=== PATIENT | male | born 1960 | race Caucasian/White ===

== ENCOUNTER 2018-07-18 14:09 | Emergency (ER) | payer BC ==
--- NOTE | 2018-07-18 15:13 | RAD REPORT ---
EXAM DESCRIPTION: CT - Head Brain Wo Cont - 07/18/2018 3:06 pm CLINICAL HISTORY: HEADACHE Drowsiness COMPARISON: <Comparisons> TECHNIQUE: All CT scans are performed using dose optimization technique as appropriate and may inclu de automated exposure control or mA/KV adjustment according to patient size. FINDINGS: No intracranial hemorrhage, hydrocephalus or extra-axial fluid collection.No areas of brai n edema or evidence of midline shift. The paranasal sinuses and mastoids are clear. The calvarium is intact. IMPRESSION: No acute intracranial abnormality.
--- NOTE | 2018-07-18 15:19 | EDPHYS ---
Physician Documentation [facility] Name: Horacio Sanchez Age: 57 yrs Sex: Male : 1960 Arrival Date: 07/18/2018 Time: 14:15 Bed 14 Private MD: Migue Folrian ED Physician Kevon Cadena HPI: 07/18 15:12 This 57 yrs old Male presents to ER via Ambulatory with complaints of kb Headache. 15:12 The patient complains of pain to the left side of head. The patient describes the kb headache as constant, waxing and waning. Onset: The symptoms/episode began/occurred 1 month(s) ago. Associated signs and symptoms: The patient has no apparent associated signs or symptoms. Severity of symptoms: At its worst the pain was moderate, in the emergency department the pain has improved, mildly. Headache History: Denies prior headaches. The symptoms are alleviated by over the counter pain medication, the symptoms are aggravated by nothing. The patient has not experienced similar symptoms in the past. The patient has not recently seen a physician. Pt reports headache for a month that is dull with intermittent periods of sharpness. Pain is to left side of head. Pt starts a new job tomorrow so he decided to come get it checked out now to see if it was something serious. Historical: - Allergies: 14:20 No Known Allergies; aj1 - Home Meds: 14:20 aspirin 81 mg Oral chew 1 tab once daily [Active]; aj1 - PMHx: 14:20 None; aj1 - PSHx: 14:20 Appendectomy; aj1 - Immunization history:: Flu vaccine is not up to date. - Social history:: Smoking status: Patient/guardian denies using tobacco. - Ebola Screening: : Patient denies travel to an Ebola-affected area in the 21 days before illness onset. ROS: 15:11 Constitutional: Negative for fever, chills, and weight loss, Eyes: Negative for injury, kb pain, redness, and discharge, ENT: Negative for injury, pain, and discharge, Neck: Negative for injury, pain, and swelling, Cardiovascular: Negative for chest pain, palpitations, and edema, Respiratory: Negative for shortness of breath, cough, wheezing, and pleuritic chest pain, Abdomen/GI: Negative for abdominal pain, nausea, vomiting, diarrhea, and constipation, MS/Extremity: Negative for injury and deformity, Skin: Negative for injury, rash, and discoloration. 15:11 Neuro: Positive for headache. Exam: 15:11 Constitutional: This is a well developed, well nourished patient who is awake, alert, kb and in no acute distress. Head/Face: Normocephalic, atraumatic. Eyes: Pupils equal round and reactive to light, extra-ocular motions intact. Lids and lashes normal. Conjunctiva and sclera are non-icteric and not injected. Cornea within normal limits. Periorbital areas with no swelling, redness, or edema. ENT: Nares patent. No nasal discharge, no septal abnormalities noted. Tympanic membranes are normal and external auditory canals are clear. Oropharynx with no redness, swelling, or masses, exudates, or evidence of obstruction, uvula midline. Mucous membranes moist. Neck: Trachea midline, no thyromegaly or masses palpated, and no cervical lymphadenopathy. Supple, full range of motion without nuchal rigidity, or vertebral point tenderness. No Meningismus. Chest/axilla: Normal chest wall appearance and motion. Nontender with no deformity. No lesions are appreciated. Cardiovascular: Regular rate and rhythm with a normal S1 and S2. No gallops, murmurs, or rubs. Normal PMI, no JVD. No pulse deficits. Respiratory: Lungs have equal breath sounds bilaterally, clear to auscultation and percussion. No rales, rhonchi or wheezes noted. No increased work of breathing, no retractions or nasal flaring. Abdomen/GI: Soft, non-tender, with normal bowel sounds. No distension or tympany. No guarding or rebound. No evidence of tenderness throughout. Skin: Warm, dry with normal turgor. Normal color with no rashes, no lesions, and no evidence of cellulitis. MS/ Extremity: Pulses equal, no cyanosis. Neurovascular intact. Full, normal range of motion. Neuro: Awake and alert, GCS 15, oriented to person, place, time, and situation. Cranial nerves II-XII grossly intact. Motor strength 5/5 in all extremities. Sensory grossly intact. Cerebellar exam normal. Normal gait. Vital Signs: 14:20 BP 132 / 75; Pulse 82; Resp 18; Temp 97.8(O); Pulse Ox 97% on R/A; Weight 127.01 kg aj1 (R); Height 6 ft. 1 in. (185.42 cm) (R); Pain /10; 14:20 Body Mass Index 36.94 (127.01 kg, 185.42 cm) aj1 NIH Stroke Scale Scores: 15:11 NIHSS Score: 0 kb [place] Coma Score: 15:12 Eye Response: spontaneous(4). Verbal Response: oriented(5). Motor Response: obeys kb commands(6). Total: 15. MDM: 14:34 Patient medically screened. kb 15:12 Data reviewed: vital signs, nurses notes. Data interpreted: Pulse oximetry: on room air kb is 97 %. Interpretation: normal. 15:17 Counseling: I had a detailed discussion with the patient and/or guardian regarding: the kb historical points, exam findings, and any diagnostic results supporting the discharge/admit diagnosis, radiology results, the need for outpatient follow up, a family practitioner, a neurologist, to return to the emergency department if symptoms worsen or persist or if there are any questions or concerns that arise at home. 07/18 14:53 Order name: CT Head Brain wo Cont; Complete Time: 15:16 kb Administered Medications: No medications were administered Disposition: 07/19 08:25 Co-signature as Attending Physician, Kevon Cadena MD I agree with the assessment and malik plan of care. Disposition: 07/18/18 15:18 Discharged to Home. Impression: Headache. - Condition is Stable. - Discharge Instructions: General Headache Without Cause, [id number]. - Medication Reconciliation Form, Thank You Letter, Antibiotic Education, Prescription Opioid Use form. - Follow up: Emergency Department; When: As needed; Reason: Worsening of condition. Follow up: Private Physician; When: 2 - 3 days; Reason: Recheck today's complaints, Continuance of care, Re-evaluation by your physician. NIH Stroke Scale - NIH Stroke Score Date: 07/18/2018 Time: 15:11 Total Score = 0 1a. Level of Consciousness (LOC) - 0(Alert) 1b. Level of Consciousness (LOC) (Year \T\ Age) - 0(Both) 1c. LOC Commands (Open \T\ Closes Eyes/Home Care Companion) - 0(Both) 2. Best Gaze (Lateral Gaze Paresis) - 0(Normal) 3. Visual Field Loss - 0(No visual loss) 4. Facial Palsy - 0(Normal) 5a. Left Arm: Motor (10-second hold) - 0(No drift) 5b. Right Arm: Motor (10-second hold) - 0(No drift) 6a. Left Leg: Motor (5-second hold - always test supine) - 0(No drift) 6b. Right Leg: Motor (5-second hold - always test supine) - 0(No drift) 7. Limb Ataxia (finger/nose \T\ heel/lo - test with eyes open) - 0(Absent) 8. Sensory Loss (pinprick arms/legs/face) - 0(Normal) 9. Best Language: Aphasia (description/naming/reading) - 0(No aphasia) 10. Dysarthria (speech clarity - read or repeat words) - 0(Normal) 11. Extinction and Inattention (visual/tactile/auditory/spatial/personal) - 0(No abnormality) Initials: kb Signatures: Dispatcher [employer] EDMS Cheryle Holder, MILLED LUMBER GRADER-C MILLED LUMBER GRADER-Ckb Ewelina Townsend, RN RN aj1 Kevon Cadena MD MD cha Joaquin, Henry, RN RN hj Corrections: (The following items were deleted from the chart) 07/18 16:06 15:18 07/18/2018 15:18 Discharged to Home. Impression: Headache. Condition is hj Stable. Forms are Medication Reconciliation Form, Thank You Letter, Antibiotic Education, Prescription Opioid Use. Follow up: Emergency Department; When: As needed; Reason: Worsening of condition. Follow up: Private Physician; When: 2 - 3 days; Reason: Recheck today's complaints, Continuance of care, Re-evaluation by your physician. kb
--- NOTE | 2018-07-18 15:19 | ER ---
Nurse's Notes [facility] Name: Horacio Sanchez Age: 57 yrs Sex: Male : 1960 Arrival Date: 07/18/2018 Time: 14:15 Bed 14 Private MD: Migue Florian Diagnosis: Headache Presentation: 07/18 14:18 Presenting complaint: Patient states: "Bernadette had a headache for about a month now. Its aj1 everyday. It dulls with medicine, but it never fully goes away" Patient has not seen his PHCP regarding this complaint. Transition of care: patient was not received from another setting of care. Onset of symptoms was May 2018. Risk Assessment: Do you want to hurt yourself or someone else? Patient reports no desire to harm self or others. Initial Sepsis Screen: Does the patient meet any 2 criteria? No. Patient's initial sepsis screen is negative. Does the patient have a suspected source of infection? No. Patient's initial sepsis screen is negative. Care prior to arrival: None. 14:18 Method Of Arrival: Ambulatory aj1 14:18 Acuity: LILA 4 aj1 Triage Assessment: 14:20 Headache History: Denies prior headaches. General: Appears in no apparent distress. aj1 comfortable, Behavior is calm, cooperative, appropriate for age. Pain: Complains of pain in left side of the back of head Pain currently is 1 out of 10 on a pain scale. Pain began one month ago. Pain: Also complains of "pulsating feeling in eye". Neuro: Level of Consciousness is awake, alert, obeys commands. Cardiovascular: Patient's skin is warm and dry. Respiratory: Airway is patent Respiratory effort is even, unlabored, Respiratory pattern is regular, symmetrical. Historical: - Allergies: 14:20 No Known Allergies; aj1 - Home Meds: 14:20 aspirin 81 mg Oral chew 1 tab once daily [Active]; aj1 - PMHx: 14:20 None; aj1 - PSHx: 14:20 Appendectomy; aj1 - Immunization history:: Flu vaccine is not up to date. - Social history:: Smoking status: Patient/guardian denies using tobacco. - Ebola Screening: : Patient denies travel to an Ebola-affected area in the 21 days before illness onset. Screenin:31 Abuse screen: Denies threats or abuse. Denies injuries from another. Nutritional hj screening: No deficits noted. Tuberculosis screening: No symptoms or risk factors identified. Fall Risk None identified. Assessment: 14:32 General: Appears in no apparent distress. uncomfortable, Behavior is calm, cooperative, hj appropriate for age. Pain: Complains of pain in scalp and left side of the back of head. Neuro: Level of Consciousness is awake, alert, obeys commands, Oriented to person, place, time, situation, Appropriate for age. Cardiovascular: Capillary refill < 3 seconds Patient's skin is warm and dry. Respiratory: Airway is patent Respiratory effort is even, unlabored, Respiratory pattern is regular, symmetrical. GI: No signs and/or symptoms were reported involving the gastrointestinal system. : No signs and/or symptoms were reported regarding the genitourinary system. EENT: No signs and/or symptoms were reported regarding the EENT system. Derm: No signs and/or symptoms reported regarding the dermatologic system. Musculoskeletal: No signs and/or symptoms reported regarding the musculoskeletal system. Vital Signs: 14:20 BP 132 / 75; Pulse 82; Resp 18; Temp 97.8(O); Pulse Ox 97% on R/A; Weight 127.01 kg aj1 (R); Height 6 ft. 1 in. (185.42 cm) (R); Pain 1/10; 14:20 Body Mass Index 36.94 (127.01 kg, 185.42 cm) aj1 [place] Coma Score: 15:12 Eye Response: spontaneous(4). Verbal Response: oriented(5). Motor Response: obeys kb commands(6). Total: 15. NIH Stroke Scale Scores: 15:11 NIHSS Score: 0 kb ED Course: 14:15 Patient arrived in ED. mr 14:15 Migue Florian MD is Private Physician. mr 14:19 Triage completed. aj1 14:20 Arm band placed on Patient placed in waiting room, Patient notified of wait time. aj1 14:30 Lai Weston, VIBHA is Primary Nurse. hj 14:31 Patient has correct armband on for positive identification. Bed in low position. Call hj light in reach. Side rails up X 1. Adult w/ patient. 14:34 Cheryle Holder FNP-C [facility]. kb 14:34 Kevon Cadena MD is Attending Physician. kb 15:[address] via wheelchair. brad 15:05 CT completed. Patient tolerated procedure well. Patient moved back from CT. brad 15:06 CT Head Brain wo Cont In Process Unspecified. EDMS Administered Medications: No medications were administered Outcome: 15:18 Discharge ordered by . lana 16:06 Patient left the ED. rafita NIH Stroke Scale - NIH Stroke Score Date: 07/18/2018 Time: 15:11 Total Score = 0 1a. Level of Consciousness (LOC) - 0(Alert) 1b. Level of Consciousness (LOC) (Year \\T\\ Age) - 0(Both) 1c. LOC Commands (Open \\T\\ Closes Eyes/Pricing Analyst) - 0(Both) 2. Best Gaze (Lateral Gaze Paresis) - 0(Normal) 3. Visual Field Loss - 0(No visual loss) 4. Facial Palsy - 0(Normal) 5a. Left Arm: Motor (10-second hold) - 0(No drift) 5b. Right Arm: Motor (10-second hold) - 0(No drift) 6a. Left Leg: Motor (5-second hold - always test supine) - 0(No drift) 6b. Right Leg: Motor (5-second hold - always test supine) - 0(No drift) 7. Limb Ataxia (finger/nose \\T\\ heel/lo - test with eyes open) - 0(Absent) 8. Sensory Loss (pinprick arms/legs/face) - 0(Normal) 9. Best Language: Aphasia (description/naming/reading) - 0(No aphasia) 10. Dysarthria (speech clarity - read or repeat words) - 0(Normal) 11. Extinction and Inattention (visual/tactile/auditory/spatial/personal) - 0(No abnormality) Initials: lana Signatures: Dispatcher [employer] EDMS Cheryle Holder, CANDICEC CASE INVESTIGATOR-CkEwelina Deras, RN RN Natalya Day Henry, RN RN Jeffery Levy
[2018-07-18 16:53] VITALS: BP 132/75; TEMP 97.8; O2SAT 97
== END 2018-07-18 16:06 | disposition home or self-care (01) ==
LOC: ER 14:09
DX: R51 Headache (principal); Z79.82 Long term (current) use of aspirin
CPT/HCPCS: 70450; 99284

== ENCOUNTER 2019-11-02 14:04 | Observation (INO) | payer BC ==
[2019-11-02] MEDS ORDERED: NA CHLORIDE 0.9% 1,000 ML ONE (15:28)
[2019-11-02] MEDS ORDERED: MORPHINE 4 MG/ML SYR ONE ×2 (15:28→18:19)
[2019-11-02] MEDS ORDERED: ONDANSETRON 4 MG/2 ML VIAL ONE (15:28)
[2019-11-02 15:53] LABS: Absolute Lymphocytes (CBC) 0.9 K/uL (0.7-4.9); Basophils % 0.8 % (0-1.3); Hematocrit 35.2 % (39.6-49.0); RBC Red Blood Cell Count 3.84 M/uL (4.33-5.43)
[2019-11-02 15:54] LABS: Protime INR 1.19
[2019-11-02 16:09] LABS: ALT/SGPT 47 U/L (12-78); AST/SGOT 21 U/L (15-37); Albumin 3.3 g/dL (3.4-5.0); Alkaline Phosphatase 98 U/L (45-117); BUN Blood Urea Nitrogen 10 mg/dL (7-18); Bicarbonate 26 mmol/L (21-32); Bilirubin Direct 0.3 mg/dL (0-0.2); Glucose Level 115 mg/dL (74-106); Magnesium 2.4 mg/dL (1.8-2.4); Potassium 3.2 mmol/L (3.5-5.1); Protein, Total 7.1 g/dL (6.4-8.2); Sodium Level 139 mmol/L (136-145)
--- NOTE | 2019-11-02 16:55 | RAD REPORT ---
EXAM DESCRIPTION: Jaelyn Single View11/02/2019 4:16 pm CLINICAL HISTORY: cough COMPARISON: 2010 FINDINGS: The lungs appear clear of acute infiltrate. The heart is normal size IMPRESSION: No acute abnormalities displayed
[2019-11-02] MEDS ORDERED: VANCOMYCIN/NS 1 gm 1 GM/250 ML BAG IVPB ONE ×2 (17:00→22:00)
--- NOTE | 2019-11-02 17:50 | RAD REPORT ---
EXAM DESCRIPTION: CT - Pelvis W/Cont - 11/02/2019 5:33 pm CLINICAL HISTORY: Pelvic pain/perineal infection COMPARISON: None. TECHNIQUE: Computed axial tomography of the pelvis was obtained. 100 cc Isovue-300 Mr. intravenously . Oral contrast was not requested which limits evaluation of bowel All CT scans are performed using dose optimization technique as appropriate and may include automated exposure control or mA/KV adjustment according to patient size. FINDINGS: Diverticula stem from the colon without evidence of diverticulitis. Bowel caliber and wall thickness is normal. The prostate gland is mildly to moderately enlarged. Spondylolysis L5 5 x 3 centimeter fluid collection lies to the left of the anus. IMPRESSION: A 5 x 3 centimeter perianal abscess
--- NOTE | 2019-11-02 18:10 | ER ---
Nurse's Notes [facility] Name: Horacio Sanchez Age: 59 yrs Sex: Male : 1960 Arrival Date: 11/02/2019 Time: 14:06 Bed 19 Private MD: Diagnosis: Cutaneous abscess of buttock;Cellulitis of buttock Presentation: 11/01 14:25 Chief complaint: Patient states: seen by an Urgent Care in [place] and given Clindamycin on dm5 Thursday. Pt states that the urgent care told him they couldn't drain the abscess and that he needed to see a general surgeon. Pt has not done so at this time. Pt states the abscess is getting worse. Pt lying on right side at this time. Coronavirus screen: The patient has NOT traveled to a country currently being monitored by the [facility] within the last 14 days. Proceed with normal triage procedures. The patient has NOT had contact with any known and/or suspected case of coronavirus. Proceed with normal triage procedures. Ebola Screen: Patient negative for fever greater than or equal to 101.5 degrees Fahrenheit, and additional compatible Ebola Virus Disease symptoms Patient denies exposure to infectious person. Patient denies travel to an Ebola-affected area in the 21 days before illness onset. No symptoms or risks identified at this time. Initial Sepsis Screen: Does the patient meet any 2 criteria? No. Patient's initial sepsis screen is negative. Does the patient have a suspected source of infection? Yes: Skin breakdown/wound. Risk Assessment: Do you want to hurt yourself or someone else? Patient reports no desire to harm self or others. 14:25 Method Of Arrival: Ambulatory dm5 14:25 Acuity: LILA 3 dm5 19:15 Onset of symptoms is unknown. Triage Assessment: 15:00 General: Appears in no apparent distress. uncomfortable, Behavior is calm, appropriate vc for age, agitated. Pain: Complains of pain in buttocks. EENT: No signs and/or symptoms were reported regarding the EENT system. Neuro: Level of Consciousness is awake, alert, obeys commands, Oriented to person, place, time, situation, none. Cardiovascular: Patient's skin is warm and dry. Respiratory: Airway is patent Respiratory effort is even, unlabored, Respiratory pattern is regular, symmetrical. GI: No signs and/or symptoms were reported involving the gastrointestinal system. : No signs and/or symptoms were reported regarding the genitourinary system. Derm: Wound noted right buttock. Musculoskeletal: Circulation, motion, and sensation intact. Range of motion: intact in all extremities. Historical: - Allergies: 19:52 No Known Allergies; wh - PMHx: 19:52 High Cholesterol; wh - PSHx: 19:52 Appendectomy; wh - Social history:: Smoking status: . Screenin:00 Abuse screen: Denies threats or abuse. Nutritional screening: No deficits noted. vc Tuberculosis screening: No symptoms or risk factors identified. Fall Risk None identified. Assessment: 15:00 Reassessment: See triage assessment. vc Vital Signs: 14:17 BP 117 / 55; Pulse 96; Resp 18; Temp 98.6; Pulse Ox 93% ; Weight 131.54 kg; Height 6 jb1 ft. 1 in. (185.42 cm); Pain 10/10; 16:00 BP 112 / 60; Pulse 92; Pulse Ox 95% on R/A; vc 18:00 BP 90 / 69; Pulse 87; Resp 18; Pulse Ox 95% on R/A; vc 19:30 BP 107 / 49; Pulse 83; Resp 18; Pulse Ox 96% on R/A; wh 14:17 Body Mass Index 38.26 (131.54 kg, 185.42 cm) jb1 ED Course: 14:06 Patient arrived in ED. fj1 14:30 Triage completed. dm5 14:33 Lebron Munoz PA is PHCP. jr8 14:33 Gab Luo MD is Attending Physician. jr8 14:53 Briseida Laurent, VIBHA is Primary Nurse. vc 15:22 EKG done, by field service poultry technician. reviewed by Lebron BARRIOS. at1 16:16 XRAY Chest (1 view) In Process Unspecified. EDMS 17:33 CT Pelvis w cont In Process Unspecified. EDMS 18:09 Horacio Johnson MD is Hospitalizing Provider. jr8 19:15 Arm band placed on right wrist. wh 19:15 Patient has correct armband on for positive identification. Placed in gown. Bed in low wh position. Call light in reach. Side rails up X 1. Pulse ox on. NIBP on. 19:49 No provider procedures requiring assistance completed. Patient admitted, IV remains in place. Administered Medications: 15:40 Drug: Zofran (Ondansetron) 4 mg Route: IVP; Site: right forearm; vc 19:54 Follow up: Response: No adverse reaction; Nausea is decreased 15:42 Drug: morphine 4 mg Route: IVP; Site: right forearm; vc 19:55 Follow up: Response: No adverse reaction; Pain is decreased; RASS: Alert and Calm (0) 17:15 Drug: Cefepime 1 grams Route: IVPB; Rate: 200 ml/hr; Infused Over: 30 mins; Site: right vc forearm; 19:55 Follow up: Response: No adverse reaction; IV Status: Completed infusion 17:15 Drug: NS 0.9% 1000 ml Route: IV; Rate: 1000 ml; Site: right forearm; vc 19:54 Follow up: Response: No adverse reaction; IV Status: Completed infusion 18:14 Drug: morphine 4 mg Route: IVP; Site: right forearm; vc 19:53 Follow up: Response: No adverse reaction; Pain is decreased; RASS: Alert and Calm (0) 18:15 Drug: vancoMYCIN 1 grams Route: IVPB; Infused Over: 1.5 hrs; Site: right forearm; vc 19:55 Follow up: Response: No adverse reaction; IV Status: Completed infusion 18:24 Drug: Tussionex Pennkinetic ER 5 ml Route: PO; vc 19:53 Follow up: Response: No adverse reaction; Marked relief of symptoms 18:25 Drug: Potassium Chloride 40 mEq Route: PO; vc 19:54 Follow up: Response: No adverse reaction Outcome: 18:10 Decision to Hospitalize by Provider. jr8 19:49 Admitted to [facility] accompanied by tech, via wheelchair, room 207, with chart, Report called to Moise Infante RN 19:49 Condition: stable 19:49 Instructed on the need for admit. 20:19 Patient left the ED. Signatures: Dispatcher [employer] Evert Nolen jb1 Katelyn Benavides, RN RN dm5 Lebron Munoz PA PA jr8 Talia Elliott, records management specialist EKG Tat1 Melissa Finley Briseida Laurent RN RN Aric Coleman fj1
--- NOTE | 2019-11-02 18:10 | EDPHYS ---
Physician Documentation [facility] Name: Horacio Sanchez Age: 59 yrs Sex: Male : 1960 Arrival Date: 11/02/2019 Time: 14:06 Bed 19 Private MD: ED Physician Gab uLo HPI: 11/01 17:47 This 59 yrs old Male presents to ER via Ambulatory with complaints of jr8 Cellulitis left buttock. 17:47 The patient presents with cellulitis of the left buttock. jr8 17:55 Description: The affected area is moderate sized, erythematous, swollen, warm. Onset: jr8 The symptoms/episode began/occurred gradually, 2 day(s) ago. Possible cause(s): unknown. Associated signs and symptoms: The patient has no apparent associated signs or symptoms. Modifying factors: the symptoms are alleviated by nothing, the symptoms are aggravated by walking, pressure, sitting, squeezing the lesion and expressing the contents, touching. Severity of symptoms: At their worst the symptoms were moderate, in the emergency department the symptoms are unchanged. The patient has not experienced similar symptoms in the past. The patient has been recently seen by a physician:. Patient stated that he started to feel sore the other day in his buttock region. Had gone to Urgent care and was put on Abx for cellulitis. Was scheduled to see general surgery for concern of abscess formation as well but came to ED today for significantly worse pain and enlargement of infected region . Historical: - Allergies: 19:52 No Known Allergies; wh - PMHx: 19:52 High Cholesterol; wh - PSHx: 19:52 Appendectomy; wh - Social history:: Smoking status: . ROS: 17:55 Eyes: Negative for injury, pain, redness, and discharge, ENT: Negative for injury, jr8 pain, and discharge, Neck: Negative for injury, pain, and swelling, Cardiovascular: Negative for chest pain, palpitations, and edema, Respiratory: Negative for shortness of breath, cough, wheezing, and pleuritic chest pain, Abdomen/GI: Negative for abdominal pain, nausea, vomiting, diarrhea, and constipation, Back: Negative for injury and pain, MS/Extremity: Negative for injury and deformity, Neuro: Negative for headache, weakness, numbness, tingling, and seizure. 17:55 Skin: Positive for abscess, cellulitis, of the left buttock. Exam: 17:55 Eyes: Pupils equal round and reactive to light, extra-ocular motions intact. Lids and jr8 lashes normal. Conjunctiva and sclera are non-icteric and not injected. Cornea within normal limits. Periorbital areas with no swelling, redness, or edema. ENT: Nares patent. No nasal discharge, no septal abnormalities noted. Tympanic membranes are normal and external auditory canals are clear. Oropharynx with no redness, swelling, or masses, exudates, or evidence of obstruction, uvula midline. Mucous membranes moist. Neck: Trachea midline, no thyromegaly or masses palpated, and no cervical lymphadenopathy. Supple, full range of motion without nuchal rigidity, or vertebral point tenderness. No Meningismus. Cardiovascular: Regular rate and rhythm with a normal S1 and S2. No gallops, murmurs, or rubs. Normal PMI, no JVD. No pulse deficits. Respiratory: Lungs have equal breath sounds bilaterally, clear to auscultation and percussion. No rales, rhonchi or wheezes noted. No increased work of breathing, no retractions or nasal flaring. Abdomen/GI: Soft, non-tender, with normal bowel sounds. No distension or tympany. No guarding or rebound. No evidence of tenderness throughout. Back: No spinal tenderness. No costovertebral tenderness. Full range of motion. MS/ Extremity: Pulses equal, no cyanosis. Neurovascular intact. Full, normal range of motion. Neuro: Awake and alert, GCS 15, oriented to person, place, time, and situation. Cranial nerves II-XII grossly intact. Motor strength 5/5 in all extremities. Sensory grossly intact. Cerebellar exam normal. Normal gait. 17:55 Skin: Patient has approximately 4 cm area of fluctuance abutting near anal orifice on left side. Surrounding cellulitis noted. Moderate pain to palpation . Vital Signs: 14:17 BP 117 / 55; Pulse 96; Resp 18; Temp 98.6; Pulse Ox 93% ; Weight 131.54 kg; Height 6 jb1 ft. 1 in. (185.42 cm); Pain 10/10; 16:00 BP 112 / 60; Pulse 92; Pulse Ox 95% on R/A; vc 18:00 BP 90 / 69; Pulse 87; Resp 18; Pulse Ox 95% on R/A; vc 19:30 BP 107 / 49; Pulse 83; Resp 18; Pulse Ox 96% on R/A; wh 14:17 Body Mass Index 38.26 (131.54 kg, 185.42 cm) jb1 MDM: 14:33 Patient medically screened. jr8 17:55 Data reviewed: vital signs, nurses notes, lab test result(s), radiologic studies, CT jr8 scan. Data interpreted: Pulse oximetry: on room air is 94 %. Interpretation: normal. Counseling: I had a detailed discussion with the patient and/or guardian regarding: the historical points, exam findings, and any diagnostic results supporting the discharge/admit diagnosis, lab results, radiology results, the need for further work-up and treatment in the hospital. Physician consultation: Horacio Johnson MD was called at 18:08, was contacted at 18:08, regarding admission, to the medical/surgical unit. consult, patient's condition, and will see patient. 11/01 14:44 Order name: Basic Metabolic Panel; Complete Time: 16:58 11/01 14:44 Order name: CBC with Diff 11/01 14:44 Order name: LFT's; Complete Time: 16:58 11/01 14:44 Order name: Magnesium; Complete Time: 16:58 11/01 14:44 Order name: PT-INR; Complete Time: 16:58 11/01 14:44 Order name: Blood Culture Adult (2) 11/01 14:44 Order name: XRAY Chest (1 view); Complete Time: 17:19 11/01 16:58 Order name: CT Pelvis w cont; Complete Time: 18:10 11/01 14:44 Order name: EKG; Complete Time: 15:35 11/01 14:44 Order name: Cardiac monitoring; Complete Time: 15:38 11/01 14:44 Order name: EKG - Nurse/Tech; Complete Time: 15:38 11/01 14:44 Order name: IV Saline Lock; Complete Time: 15:38 11/01 14:44 Order name: Labs collected and sent; Complete Time: 15:39 11/01 14:44 Order name: O2 Per Protocol; Complete Time: 15:39 11/01 14:44 Order name: O2 Sat Monitoring; Complete Time: 15:39 [facility] 11/01 15:27 Order name: EKG Electrocardiogram; Complete Time: 15:38 EDMS Administered Medications: 15:40 Drug: Zofran (Ondansetron) 4 mg Route: IVP; Site: right forearm; vc 19:54 Follow up: Response: No adverse reaction; Nausea is decreased 15:42 Drug: morphine 4 mg Route: IVP; Site: right forearm; vc 19:55 Follow up: Response: No adverse reaction; Pain is decreased; RASS: Alert and Calm (0) 17:15 Drug: Cefepime 1 grams Route: IVPB; Rate: 200 ml/hr; Infused Over: 30 mins; Site: right vc forearm; 19:55 Follow up: Response: No adverse reaction; IV Status: Completed infusion 17:15 Drug: NS 0.9% 1000 ml Route: IV; Rate: 1000 ml; Site: right forearm; vc 19:54 Follow up: Response: No adverse reaction; IV Status: Completed infusion 18:14 Drug: morphine 4 mg Route: IVP; Site: right forearm; vc 19:53 Follow up: Response: No adverse reaction; Pain is decreased; RASS: Alert and Calm (0) 18:15 Drug: vancoMYCIN 1 grams Route: IVPB; Infused Over: 1.5 hrs; Site: right forearm; vc 19:55 Follow up: Response: No adverse reaction; IV Status: Completed infusion 18:24 Drug: Tussionex Pennkinetic ER 5 ml Route: PO; vc 19:53 Follow up: Response: No adverse reaction; Marked relief of symptoms 18:25 Drug: Potassium Chloride 40 mEq Route: PO; vc 19:54 Follow up: Response: No adverse reaction Disposition: 11/02 07:08 Co-signature as Attending Physician, Gab Luo MD I agree with the assessment and kdr plan of care. Disposition: 11/02/19 18:10 Hospitalization ordered by Horacio Johnson for Observation. Preliminary diagnosis are Cutaneous abscess of buttock, Cellulitis of buttock. - Bed requested for Telemetry/MedSurg (observation). - Status is Observation. wh - Condition is Stable. - Problem is new. - Symptoms have improved. Signatures: Dispatcher [employer] EDJoleen Sepulveda RN Gab Conner MD MD [facility] Lebron Munoz PA PA jr8 Melissa Finley Briseida Laurent RN RN vc Corrections: (The following items were deleted from the chart) 11/01 18:27 18:10 Hospitalization Ordered by Horacio Johnson MD for Observation. Preliminary dw diagnosis is Cutaneous abscess of buttock; Cellulitis of buttock. Bed requested for Telemetry/MedSurg (observation). Status is Observation. Condition is Stable. Problem is new. Symptoms have improved. jr8 20:19 18:27 11/02/2019 18:10 Hospitalization Ordered by Horacio Johnson MD for Observation. Preliminary diagnosis is Cutaneous abscess of buttock; Cellulitis of buttock. Bed requested for Telemetry/MedSurg (observation). Status is Observation. Condition is Stable. Problem is new. Symptoms have improved. dw
[2019-11-02] MEDS ORDERED: HYDROCODONE/CHLORPHEN 5 ML/OSYR ONE (18:18)
[2019-11-02] MEDS ORDERED: POTASSIUM CL SA 10 MEQ TAB PO ONE (18:19)
[2019-11-02] MEDS ORDERED: ONDANSETRON 4 MG/2 ML VIAL IV PRN (20:41)
[2019-11-02] MEDS ORDERED: HYDROCODONE/APAP 10/325 TAB PO ONE (21:06)
[2019-11-02] MEDS: NA CHLORIDE 0.9% 1,000 ML IV SCH (21:45)
[2019-11-02 21:56] VITALS: BMI 38.7
[2019-11-02] MEDS ORDERED: CEFEPIME 1 GM/VIAL IV SCH (22:00)
[2019-11-02] MEDS ORDERED: NA CHLORIDE 0.9% 250 ML ONE (22:28)
[2019-11-02] MEDS ORDERED: VANCOMYCIN 1 GM/VIAL ONE (22:30)
[2019-11-03] MEDS ORDERED: VANCOMYCIN/NS 1 gm 1 GM/250 ML BAG IVPB SCH (04:00)
[2019-11-03] MEDS ORDERED: CEFEPIME 1 GM/VIAL IV SCH (05:00)
[2019-11-03] MEDS: MORPHINE 4 MG/ML SYR IV PRN ×2 (05:04→10:56)
[2019-11-03 05:48] LABS: Basophils % 0.7 % (0-1.3); Hematocrit 35.2 % (39.6-49.0); Lymphocytes % 12.4 % (15.3-44.8); RBC Red Blood Cell Count 3.83 M/uL (4.33-5.43)
[2019-11-03] MEDS ORDERED: VANCOMYCIN 2 GM in NA CHLORIDE 0.9% 500 ML IVPB SCH ×2 (06:00→09:00)
[2019-11-03 06:06] LABS: Potassium 3.5 mmol/L (3.5-5.1)
--- NOTE | 2019-11-03 08:53 | EKG ---
Test Date: 2019-11-02 Test Time: 15:09:56 Disc Sander: HERNANDEZ MEASUREMENT RESULTS: Intervals: Rate: 97 NJ: 162 QRSD: 86 QT: 346 QTc: 439 Bailey: P: 51 NJ: 162 QRS: 74 T: 37 INTERPRETIVE STATEMENTS: Normal sinus rhythm T wave abnormality, consider inferior ischemia Abnormal ECG Compared to ECG 02/17/2011 06:46:46 T-wave abnormality now present Possible ischemia now present Electronically Signed On 11-03-19 08:50:57 CDT by Giacomo Yee
[2019-11-03] MEDS: NA CHLORIDE 0.9% 1,000 ML IV SCH (09:33)
[2019-11-03] MEDS ORDERED: MIDAZOLAM HCL 2 MG/2 ML INJ ONE (13:04)
[2019-11-03] MEDS ORDERED: propofoL 200 MG/20 ML VIAL IV ONE (13:04)
[2019-11-03] MEDS ORDERED: LIDOCAINE 1% MPF 5 ML VIAL ONE (13:04)
[2019-11-03] MEDS ORDERED: FENTANYL CITR 100 MCG/2 ML ONE ×2 (13:04→13:59)
[2019-11-03] MEDS ORDERED: Ringers Lactate 1,000 ML IV ONE (13:06)
--- NOTE | 2019-11-03 13:10 | P.HP ---
Date of Service: 11/03/19 PC: This 59-year-old male presents with perirectal pain for diagnosis and treatment. HPC: Patient has been experiencing excruciating some pain over the last 12:48 p.m.. Has pain and swelling down all around by his anus. Says it is getting bigger and causing more discomfort. PMH: Negative PSHx: Negative SOC: Allergies SYS REVIEW: Has a cough at the moment he has had it for a about a week. Denies any urinary complaints. No change in bowel habit. This is 1st episode with something like this. O/E awake alert uncomfortable HEENT: Within normal limits Chest: Chest movement equal bilaterally ABD: Soft, has large perirectal abscess LOCO: Intact DATA: CT scan shows abscess no evidence of gangrene IMPRESSION: Perirectal abscess PLAN: I will take him the operating room for a incision, drainage, sharp debridement of this perirectal abscess. The risks of this procedure have been discussed. The possibility of bleeding, infection, injury to surrounding structures were explained. He understands and wants us to proceed.
[2019-11-03] MEDS ORDERED: KETOROLAC 30 MG/ML INJ ONE (13:38)
[2019-11-03] MEDS ORDERED: ONDANSETRON 4 MG/2 ML VIAL ONE (13:59)
--- NOTE | 2019-11-03 14:08 | P.OP ---
Preoperative diagnosis: Perirectal abscess Postoperative diagnosis: The same Primary procedure: Incision, drainage, sharp debridement of perirectal abscess Anesthesia: General Estimated blood loss: Than 10 cc Specimen: Cultures both a aerobic and anaerobic were taken Operative Technique: The patient brought the operating room placed supine on the table. After the induction of adequate general anesthesia, the patient was converted to lithotomy. The perineal area was prepped with a Betadine solution draped in usual aseptic manner. On the left buttock with his CA range of intense edematous tissue. Medial to this between that and the anus itself there was a obvious fluctuant prominent area. This was injected with 0.25% Marcaine. A skin incision was made. This brought down through the skin and subcutaneous tissue. We encounter about 50 cc of thick foul-smelling purulent material. This was aspirated from the wound. It necrotic debris was now sharply incise using 11 blade. The wound was also scraped with a surgical cutting curette. A 2. Nylon was now placed into this incision and brought out more laterally to the and tied on itself to keep the wound open and draining during the postoperative period. At the end of procedure he was stable when sent to the recovery room. Needle sponge instrument count were correct. Complications: None Drain(s): Other (2. Nylon) Transferred to: Recovery Room Condition: Good
[2019-11-03] MEDS ORDERED: MORPHINE 4 MG/ML SYR IV PRN (14:17)
[2019-11-03] MEDS ORDERED: HYDROCODONE/APAP 7.5/325 MG TAB PO PRN (14:17)
[2019-11-03 14:32] VITALS: O2SAT 95
[2019-11-03 17:40] VITALS: BP 115/65; TEMP 98.5
[2019-11-03] MEDS ORDERED: CEFEPIME/SWI 1gm 10 ML IV SCH (21:00)
== END 2019-11-03 18:50 | disposition home or self-care (01) ==
LOC: ER 14:04 → ERHOLD 18:15 → 2ND 19:57
PROVIDERS: ADMIT Surgery; ATTEND Surgery
PROC: 0JBB0ZZ Excision of Perineum Subcutaneous Tissue and Fascia, Open Approach (ICD-10-PCS; 2019-11-03)
PROC: 0D9P0ZZ Drainage of Rectum, Open Approach (ICD-10-PCS; principal; 2019-11-03 13:00)
DX: K61.1 Rectal abscess (principal); L03.317 Cellulitis of buttock; I96 Gangrene, not elsewhere classified; R94.31 Abnormal electrocardiogram [ECG] [EKG]; K57.30 Diverticulosis of large intestine without perforation or abscess without bleeding; N40.0 Benign prostatic hyperplasia without lower urinary tract symptoms; M43.06 Spondylolysis, lumbar region
CPT/HCPCS: 96365; 93005; 87040 ×2; 87070; 85025 ×2; 80048 ×2; 36415; 83735; 87205; 85610; 80076; 87075; 87077 ×2; 87186 ×2; 72193; 71045; 96375; 99285; 96366; 46040; 11042; Q9967; J2704; J2250; J3010 ×2; J3370; J7120; J7030 ×4; J2405 ×2; J0692; G0378 ×3; J7040

== ENCOUNTER 2021-05-05 13:03 | Inpatient (IN) | payer BC, OTHER ==
--- NOTE | 2021-05-05 14:03 | RAD REPORT ---
EXAM DESCRIPTION: RAD - Chest Single View - 05/05/2021 1:55 pm CLINICAL HISTORY: SOB;Cough Chest pain. COMPARISON: Chest Single View dated 11/02/2019; CHEST SINGLE VIEW dated 02/17/2011; CHEST PA AND LAT 2 VIEW dated 05/27/2004 FINDINGS: Portable technique limits examination quality. Interstitial lung markings are mildly prominent suggesting viral infection. The heart is normal in si ze. No displaced fractures.
[2021-05-05 14:54] LABS: Absolute Lymphocytes (CBC) 0.5 K/uL (0.7-4.9); Basophils % 0.3 % (0-1.3); Hematocrit 41.7 % (39.6-49.0); Lymphocytes % 12.9 % (15.3-44.8); MPV 8.7 fL (7.6-11.3); RBC Red Blood Cell Count 4.63 M/uL (4.33-5.43)
[2021-05-05] MEDS ORDERED: IPRATROPIUM BROM 0.5MG/2.5ML ONE (15:04)
[2021-05-05] MEDS ORDERED: HYDROCODONE/CHLORPHEN 5 ML/OSYR ONE (15:04)
[2021-05-05] MEDS ORDERED: ALBUTEROL 2.5 MG/3 ML NEB SOL ONE (15:04)
[2021-05-05 15:09] LABS: Protime INR 1.21
[2021-05-05 15:35] LABS: ALT/SGPT 66 U/L (12-78); AST/SGOT 58 U/L (15-37); Albumin 3.5 g/dL (3.4-5.0); Alkaline Phosphatase 86 U/L (45-117); BUN Blood Urea Nitrogen 14 mg/dL (7-18); Bicarbonate 22 mmol/L (21-32); Bilirubin Direct 0.3 mg/dL (0-0.2); Bilirubin Total 0.9 mg/dL (0.2-1.0); Ferritin 1988.5 ng/mL (26-388); Glucose Level 104 mg/dL (74-106); Lipase 114 U/L (73-393); Potassium 3.4 mmol/L (3.5-5.1); Protein, Total 7.3 g/dL (6.4-8.2); Sodium Level 135 mmol/L (136-145); Troponin (Emerg Dept Use Only) < 0.02 ng/mL (0.0-0.045)
--- NOTE | 2021-05-05 16:16 | RAD REPORT ---
EXAM DESCRIPTION: US - Extrem Venous W Compress Rojas - 05/05/2021 2:56 pm CLINICAL HISTORY: Calf pain bilaterally Bilateral leg edema and swelling. COMPARISON: No comparisons TECHNIQUE: Real-time sonographic interrogation of the left and right lower extremity deep venous sys tems was performed. FINDINGS: Normal compressibility, flow augmentation, phasic flow and spontaneous flow is identified in both the left and right lower extremity deep venous systems. IMPRESSION: No sonographic evidence of left or right lower extremity deep venous thrombosis.
[2021-05-05] MEDS ORDERED: ONDANSETRON 4 MG/2 ML VIAL ONE (16:17)
--- NOTE | 2021-05-05 16:51 | EDPHYS ---
Physician Documentation [facility] Name: Horacio Sanchez Age: 60 yrs Sex: Male : 1960 Arrival Date: 05/05/2021 Time: 13:08 Bed 20 Private MD: ED Physician HPI: 05/05 13:42 This 60 yrs old Male presents to ER via Ambulatory with complaints of Nausea, pm1 Cough, Low O2. 13:42 The patient or guardian reports cough, with no sputum, difficulty breathing. Onset: The pm1 symptoms/episode began/occurred 1 week(s) ago. Severity of symptoms: in the emergency department the symptoms are actually worse. Modifying factors: The symptoms are alleviated by nothing, the symptoms are aggravated by exertion. Associated signs and symptoms: Pertinent positives: fever, nausea, Body aches, shortness of breath, Pertinent negatives: chest pain, diarrhea, vomiting. The patient has not experienced similar symptoms in the past. The patient has been recently seen by a physician: with similar presenting complaints, and apparently given a diagnosis of Coronavirus infection. By work physician. 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 Patient received first dose of coronavirus vaccine on 04/23. Patient did not receive second vaccine dose. Historical: - Allergies: 13:25 No Known Allergies; hb - PMHx: 13:25 High Cholesterol; hb - Immunization history:: Client reports receiving the 1st dose of the Covid vaccine, April 23, 2021. - Social history:: Smoking status: Patient denies any tobacco usage or history of. ROS: 13:42 Eyes: Negative for injury, pain, redness, and discharge, ENT: Negative for injury, pm1 pain, and discharge, Cardiovascular: Negative for chest pain, palpitations, and edema. 13:42 Abdomen/GI: Negative for abdominal pain, nausea, vomiting, diarrhea, and constipation, Back: Negative for injury and pain. 13:42 Skin: Negative for injury, rash, and discoloration, Neuro: Negative for headache, weakness, numbness, tingling, and seizure. 13:42 Constitutional: Positive for body aches, chills, fever, poor PO intake. 13:42 Respiratory: Positive for cough, with no reported sputum, shortness of breath. 13:42 MS/extremity: Positive for Bilateral calf pain, Negative for decreased range of motion, deformity. 13:42 All other systems are negative. Exam: 13:42 Constitutional: This is a well developed, well nourished patient who is awake, alert, pm1 and in no acute distress. Head/Face: Normocephalic, atraumatic. Chest/axilla: Normal chest wall appearance and motion. Nontender with no deformity. No lesions are appreciated. 13:42 Skin: Warm, dry with normal turgor. Normal color with no rashes, no lesions, and no evidence of cellulitis. MS/ Extremity: Pulses equal, no cyanosis. Neurovascular intact. Full, normal range of motion. 13:42 Eyes: Exam is negative for acute changes, Periorbital structures: no acute changes, Extraocular movements: intact throughout. 13:42 ENT: Exam is negative for acute changes, Nose: no acute changes, Mouth: no acute changes, Lips: normal, moist, Oral mucosa: normal, pink and intact, moist. 13:42 Cardiovascular: Rate: tachycardic, Rhythm: regular, Pulses: no pulse deficits are appreciated, Edema: is not appreciated. 13:42 Respiratory: the patient does not display signs of respiratory distress, Breath sounds: bronchial sounds, that are moderate, are heard diffusely. 13:42 Abdomen/GI: Exam negative for acute changes, Inspection: abdomen appears normal, Palpation: abdomen is soft and non-tender, in all quadrants. 13:42 Neuro: Exam negative for acute changes, Orientation: is normal, Mentation: is normal, Motor: is normal, moves all fours. Vital Signs: 13:20 BP 135 / 80; Pulse 107; Resp 18; Temp 99; Pulse Ox 91% on R/A; Weight 127.01 kg; Height hb 6 ft. 1 in. (185.42 cm); Pain 6/10; 18:48 BP 122 / 69; Pulse 98; Resp 18; Pulse Ox 93% on 3 lpm NC; ll1 13:20 Body Mass Index 36.94 (127.01 kg, 185.42 cm) hb MDM: 13:23 Patient medically screened. pm1 13:37 Data reviewed: vital signs. Data interpreted: Pulse oximetry: on room air is 94 %. pm1 Interpretation: acceptable. 16:47 Counseling: I had a detailed discussion with the patient and/or guardian regarding: the pm1 historical points, exam findings, and any diagnostic results supporting the discharge/admit diagnosis, lab results, radiology results, the need for further work-up and treatment in the hospital. 05/05 13:40 Order name: BMP pm1 05/05 13:40 Order name: C-Reactive Protein pm1 05/05 13:40 Order name: CBC with Diff pm05/05 13:40 Order name: D-Dimer pm05/05 13:40 Order name: Ferritin pm1 05/05 13:40 Order name: Flu pm05/05 13:40 Order name: LFT's pm05/05 13:40 Order name: Lactate pm05/05 13:40 Order name: Lipase pm1 05/05 13:40 Order name: PT-INR; Complete Time: 15:26 pm1 05/05 13:40 Order name: Procalcitonin; Complete Time: 15:45 pm1 05/05 13:40 Order name: Ptt, Activated; Complete Time: 15:26 pm1 05/05 13:40 Order name: Strep; Complete Time: 15:26 pm1 05/05 13:40 Order name: Troponin (emerg Dept Use Only); Complete Time: 15:40 pm1 05/05 13:40 Order name: CXR XRAY; Complete Time: 14:51 pm1 05/05 13:40 Order name: Basic Metabolic Panel; Complete Time: 15:40 EDMS 05/05 13:40 Order name: C-Reactive Protein; Complete Time: 15:40 EDMS 05/05 13:40 Order name: CBC with Automated Diff; Complete Time: 15:07 EDMS 05/05 13:40 Order name: D-Dimer; Complete Time: 15:26 EDMS 05/05 13:40 Order name: Ferritin; Complete Time: 15:40 EDMS 05/05 13:40 Order name: Influenza Screen (A ; Complete Time: 15:26 EDMS 05/05 13:40 Order name: Liver (Hepatic) Function; Complete Time: 15:40 EDMS 05/05 13:40 Order name: Lactate; Complete Time: 15:26 EDMS 05/05 13:40 Order name: Lipase; Complete Time: 15:40 EDMS 05/05 13:48 Order name: Extrem Venous W Compression Rojas US; Complete Time: 16:22 pm1 05/05 15:18 Order name: Throat Culture EDAR 05/05 18:05 Order name: C-Reactive Protein EDAR 05/05 13:40 Order name: EKG; Complete Time: 13:41 pm1 05/05 13:40 Order name: Cardiac monitoring; Complete Time: 15:22 pm1 05/05 13:40 Order name: Droplet/Contact Precautions; Complete Time: 14:33 pm1 05/05 13:40 Order name: EKG - Nurse/Tech; Complete Time: 15:22 pm1 05/05 13:40 Order name: IV Start; Complete Time: 14:33 pm1 05/05 13:40 Order name: Labs collected and sent; Complete Time: 14:33 pm1 05/05 13:40 Order name: O2 Per Protocol; Complete Time: 14:33 pm1 05/05 13:40 Order name: O2 Sat Monitoring; Complete Time: 14:33 pm1 05/05 18:08 Order name: CONS Physician Consult EDAR 05/05 18:16 Order name: Social Service Consult EDAR Administered Medications: 14:48 Drug: Tussionex Pennkinetic ER (chlorpheniramine-hydrocodone) Suspension 5 ml Route: PO;ll1 17:56 Follow up: Response: No adverse reaction; RASS: Alert and Calm (0) ss 15:00 Drug: Albuterol - atroVENT (ipratropium) (3:1) (2.5 mg - 0.5 mg) 3 ml Route: Nebulizer; ll1 17:56 Follow up: Response: No adverse reaction ss 17:47 Drug: NS 0.9% 1000 ml Route: IV; Rate: 1000 ml; Site: left hand; ll1 22:30 Follow up: Response: No adverse reaction; IV Status: Completed infusion lh3 17:56 Drug: Aspirin 325 mg Route: PO; ss 18:54 Follow up: Response: No adverse reaction ll1 17:56 Drug: SOLU-Medrol (methylPrednisoLONE) 125 mg Route: IVP; Site: left hand; ss 18:54 Follow up: Response: No adverse reaction ll1 Disposition: 05/06 07:13 Co-signature as Attending Physician, Darrion Pedro MD I agree with the assessment and rn plan of care. Attestation: The patient's history, exam findings, diagnostics, and a summary of any interventions or procedures was reviewed in detail with Joshua Zepeda FINANCIAL SPECIALIST. Disposition Summary: 05/05/21 16:51 Hospitalization Ordered Hospitalization Status: Inpatient Admission pm1 Provider: Grayson Quezada pm1 Condition: Stable pm1 Problem: new pm1 Symptoms: have improved pm1 Bed/Room Type: Standard pm1 Location: Telemetry/MedSurg (Inpatient)(05/05/21 21:54) Room Assignment: 423(05/05/21 21:54) Diagnosis - Pneumonia due to SARS-associated coronavirus pm1 - Hypoxia pm1 Forms: - Medication Reconciliation Form pm1 - SBAR form pm1 Signatures: Dispatcher [employer] EDMS Génesis Curtis RN RN Darrion Pedro MD MD rn Smirch, Shelby, RN RN ss Marinas, Patrick, NP FINANCIAL SPECIALIST pm1 Coco Escobar RN RN hb Lewis, Lynsay, RN RN ll1 Anne Marie Prather RN lh3 Corrections: (The following items were deleted from the chart) 05/05 19:38 16:51 Telemetry/MedSurg (Inpatient) pm1 mw 19:38 16:51 pm1 mw 21:54 19:38 BR ER HOLD mw mw 21:54 19:38 ERHOLD- mw mw
--- NOTE | 2021-05-05 16:51 | ER ---
Nurse's Notes [facility] Name: Horacio Sanchez Age: 60 yrs Sex: Male : 1960 Arrival Date: 05/05/2021 Time: 13:08 Bed 20 Private MD: Diagnosis: Pneumonia due to SARS-associated coronavirus;Hypoxia Presentation: 05/05 13:20 Chief complaint: Cough, SOB, body aches, and nausea x 1 week. 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 Rcvd first Pfizer COVID vaccine 04/23. Coronavirus screen: Client presents with at least one sign or symptom that may indicate coronavirus-19. Standard/surgical mask placed on the client. Provider contacted for isolation considerations. Ebola Screen: No symptoms or risks identified at this time. Risk Assessment: Do you want to hurt yourself or someone else? Patient reports no desire to harm self or others. Onset of symptoms was April 28, 2021. 13:20 Method Of Arrival: Ambulatory 13:20 Acuity: LILA 2 hb 14:34 Initial Sepsis Screen: Does the patient meet any 2 criteria? HR > 90 bpm. Does the ll1 patient have a suspected source of infection? Yes: Productive cough/pneumonia. Historical: - Allergies: 13:25 No Known Allergies; hb - PMHx: 13:25 High Cholesterol; hb - Immunization history:: Client reports receiving the 1st dose of the Covid vaccine, April 23, 2021. - Social history:: Smoking status: Patient denies any tobacco usage or history of. Screenin:34 Abuse screen: Denies threats or abuse. Nutritional screening: No deficits noted. ll1 Tuberculosis screening: No symptoms or risk factors identified. Fall Risk IV access (20 points). Total Noriega Fall Scale indicates No Risk (0-24 pts). Assessment: 14:45 General: Appears ill, Behavior is calm, cooperative, appropriate for age. Pain: ll1 Complains of pain in back Quality of pain is described as aching, Aggravated by cough/deep breathe. Neuro: No deficits noted. Cardiovascular: No deficits noted. Respiratory: Reports shortness of breath cough that is Airway is patent Trachea midline Respiratory effort is even, labored, Respiratory pattern is regular, symmetrical, Breath sounds are diminished bilaterally. GI: Abdomen is round Bowel sounds present X 4 quads. Abd is soft and non tender X 4 quads. Reports nausea. Musculoskeletal: Reports pain in body aches. 15:45 Reassessment: No changes from previously documented assessment. Patient and/or family ll1 updated on plan of care and expected duration. Pain level reassessed. Patient is alert, oriented x 3, equal unlabored respirations, skin warm/dry/pink. 16:45 Reassessment: No changes from previously documented assessment. Patient and/or family ll1 updated on plan of care and expected duration. Pain level reassessed. Patient is alert, oriented x 3, equal unlabored respirations, skin warm/dry/pink. 17:45 Reassessment: No changes from previously documented assessment. Patient and/or family ll1 updated on plan of care and expected duration. Pain level reassessed. Patient is alert, oriented x 3, equal unlabored respirations, skin warm/dry/pink. 18:45 Reassessment: No changes from previously documented assessment. Patient and/or family ll1 updated on plan of care and expected duration. Pain level reassessed. Patient is alert, oriented x 3, equal unlabored respirations, skin warm/dry/pink. Vital Signs: 13:20 BP 135 / 80; Pulse 107; Resp 18; Temp 99; Pulse Ox 91% on R/A; Weight 127.01 kg; Height hb 6 ft. 1 in. (185.42 cm); Pain 6/10; 18:48 BP 122 / 69; Pulse 98; Resp 18; Pulse Ox 93% on 3 lpm NC; ll1 13:20 Body Mass Index 36.94 (127.01 kg, 185.42 cm) ED Course: 13:08 Patient arrived in ED. rg4 13:22 Roby Crawley, VIBHA is Primary Nurse. ll1 13:23 Joshua Zepeda NP is PHCP. pm1 13:23 Darrion Pedro MD is Attending Physician. pm1 13:24 Triage completed. hb 13:24 Arm band placed on Patient placed in an exam room, on a stretcher. ll1 13:56 CXR XRAY In Process Unspecified. EDMS 14:25 Missed attempt(s): 22 gauge in left forearm. Bleeding controlled, band aid applied, ll1 catheter tip intact. 14:34 Inserted saline lock: 22 gauge in left hand, using aseptic technique. Blood collected. ll1 14:35 Patient has correct armband on for positive identification. Placed in gown. Bed in low ll1 position. Call light in reach. Side rails up X 1. Pulse ox on. NIBP on. 14:56 Extrem Venous W Compression Rojas US In Process Unspecified. EDMS 15:22 Procalcitonin Sent. mh5 15:22 Troponin (emerg Dept Use Only) Sent. mh5 15:22 Lipase Sent. mh5 15:22 Lactate Sent. mh5 15:22 LFT's Sent. mh5 15:22 Flu Sent. mh5 15:22 Ferritin Sent. mh5 15:22 D-Dimer Sent. mh5 15:22 CBC with Diff Sent. mh5 15:23 C-Reactive Protein Sent. mh5 15:23 BMP Sent. mh5 15:23 Basic Metabolic Panel Sent. mh5 15:23 C-Reactive Protein Sent. mh5 15:23 Ferritin Sent. mh5 15:23 Liver (Hepatic) Function Sent. mh5 15:23 Lipase Sent. mh5 16:49 Grayson Quezada MD is Hospitalizing Provider. pm1 22:27 No provider procedures requiring assistance completed. Patient admitted, IV remains in [address]. 22:31 Attending Physician role handed off by Darrion Pedro MD 3 22:31 PHCP role handed off by Joshua Zepeda NP [facility] 22:31 Primary Nurse role handed off by Roby Crawley, VIBHA 3 22:36 Maciej Bojorquez MD is Attending Physician. tw4 22:57 Anne Marie Prather, VIBHA is Primary Nurse. 3 Administered Medications: 14:48 Drug: Tussionex Pennkinetic ER (chlorpheniramine-hydrocodone) Suspension 5 ml Route: PO;ll1 17:56 Follow up: Response: No adverse reaction; RASS: Alert and Calm (0) ss 15:00 Drug: Albuterol - atroVENT (ipratropium) (3:1) (2.5 mg - 0.5 mg) 3 ml Route: Nebulizer; ll1 17:56 Follow up: Response: No adverse reaction ss 17:47 Drug: NS 0.9% 1000 ml Route: IV; Rate: 1000 ml; Site: left hand; ll1 22:30 Follow up: Response: No adverse reaction; IV Status: Completed infusion 3 17:56 Drug: Aspirin 325 mg Route: PO; 18:54 Follow up: Response: No adverse reaction ll1 17:56 Drug: SOLU-Medrol (methylPrednisoLONE) 125 mg Route: IVP; Site: left hand; 18:54 Follow up: Response: No adverse reaction ll1 Outcome: 16:51 Decision to Hospitalize by Provider. pm1 22:27 Admitted to Med/surg accompanied by nurse, room 423, with oxygen. 3 22:27 Condition: stable 22:27 Instructed on the need for admit. 22:30 Patient left the ED. lh3 22:58 Patient left the ED. 3 Signatures: Dispatcher [employer] EDMS Holley Calabrese RN RN ss Joshua Zepeda, BRAKE COUPLER DINKEY BRAKE COUPLER DINKEY pm1 Coco Escobar RN RN Roseann Gross Ifeoma Ballesteros [facility] Maciej Bojorquez MD MD tw4 Roby Crawley RN RN 1 Anne Marie Prather RN RN 3
[2021-05-05] MEDS ORDERED: NA CHLORIDE 0.9% 1,000 ML ONE (17:48)
[2021-05-05] MEDS ORDERED: ASPIRIN EC 325 MG TABLET PO ONE (17:48)
[2021-05-05] MEDS ORDERED: METHYLPREDNISOLONE 125 MG INJ ONE (17:48)
--- NOTE | 2021-05-05 18:09 | P.HP ---
Certification for Inpatient Patient admitted to: Inpatient With expected LOS: >2 Midnights Patient will require the following post-hospital care: Home Health Services Practitioner: I am a practitioner with admitting privileges, knowledge of patient current condition, hospital course, and medical plan of care. Services: Services provided to patient in accordance with Admission requirements found in Title 42 Section 412.3 of the Code of Federal Regulations Patient History Date of Service: 05/05/21 Primary Care Provider: Ken Florian Reason for admission: covid pneumonia. History of Present Illness: Patient is a pleasant gentleman. He has a history of hyperlipidemia. 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 The patient has recieved only one dose of the vaccine. He has had 2 days of fever and cough. Decided to come to the ER. Was initially found to be in the 90% oxygen range. However despite supplemental oxygen and steroids the patient started to desaturate into the 80% He is currently stable on 5lts nc. Allergies No Known Allergies Allergy (Verified 11/02/19 21:55) Home medications list reviewed: Yes Home Medications: Brompheniramine/Pseudoephed/Dm [Skxsqpvv-[id number]-Js 2-30-10 mg/5Ml] 10 ml PO Q6HP PRN 11/02/19 clindamycin HCL [Clindamycin HCl] 300 mg PO Q6H 11/02/19 - Past Medical/Surgical History Diabetic: No -: Appendectomy - Social History Alcohol use: Yes CD- Drugs: No Caffeine use: Yes Review of Systems 10-point ROS is otherwise unremarkable General: Malaise ENT: Other (loss of taste) Respiratory: Cough, Shortness of Breath Physical Examination - Physical Exam General: Alert, Moderate distress HEENT: Atraumatic, PERRLA, Mucous membr. moist/pink, EOMI, Sclerae nonicteric Neck: Supple, 2+ carotid pulse no bruit, No LAD, Without JVD or thyroid abnormality Respiratory: Crackles/rales Cardiovascular: Regular rate/rhythm, Normal S1 S2 Gastrointestinal: Normal bowel sounds, No tenderness Musculoskeletal: No tenderness Integumentary: No rashes Neurological: Normal gait, Normal speech, Normal strength at 5/5 x4 extr, Normal tone, Normal affect Lymphatics: No axilla or inguinal lymphadenopathy - Studies Laboratory Data (last 24 hrs) 05/05/21 14:30: PT 13.9 H, INR 1.21, APTT 30.2 05/05/21 14:30: WBC 3.90 L, Hgb 14.4, Hct 41.7, Plt Count 146 L 05/05/21 14:30: Sodium 135 L, Potassium 3.4 L, BUN 14, Creatinine 0.88, Glucose 104, Total Bilirubin 0.9, AST 58 H, ALT 66, Alkaline Phosphatase 86, Lipase 114 Microbiology Data (last 24 hrs): 05/05/21 14:27 Throat Group A Streptococcus Rapid Screen - Final 05/05/21 14:27 Nasopharnyx Influenza Type A Antigen Screen - Final 05/05/21 14:27 Nasopharnyx Influenza Type B Antigen Screen - Final Assessment and Plan - Problems (Diagnosis) (1) COVID Current Visit: Yes Status: Acute Plan: will admit the patient. Start oxygen, fluids, steroids. Will use ivermectin as well as remdesivir. Have discussed the patient with Dr. Rucker. (2) Hyperlipidemia Current Visit: Yes Status: Chronic Plan: will check a cholesterol in the am. Qualifiers: Hyperlipidemia type: mixed hyperlipidemia Qualified Code(s): E78.2 - Mixed hyperlipidemia Discharge Plan: Home - Advance Directives Does patient have a Living Will: No Does patient have a Durable POA for Healthcare: Yes - Code Status/Comfort Care Code Status Assessed: No Code Status: Full Code Physician Review: Patient Assessed, Agree with Above Assessment and Plan Critical Care: No Time Spent Managing Pts Care (In Minutes): 45
[2021-05-05 19:42] VITALS: BMI 36.9
[2021-05-05] MEDS: ASCORBIC ACID 500 MG TABLET PO SCH (21:00)
[2021-05-05] MEDS: APIXABAN 5 MG TABLET PO SCH (21:00)
[2021-05-05] MEDS ORDERED: METHYLPRED NA SUC 80 MG in NA CHLORIDE 0.9% 100 ML IV SCH (21:00)
[2021-05-05] MEDS: METHYLPREDNISOLONE 40 MG INJ IV SCH (21:00)
[2021-05-05] MEDS: MELATONIN 3 MG TABLET PO SCH (21:00)
[2021-05-05] MEDS ORDERED: APIXABAN 5 MG TABLET ONE (22:42)
[2021-05-05] MEDS ORDERED: METHYLPREDNISOLONE 40 MG INJ ONE (22:42)
[2021-05-05] MEDS ORDERED: MELATONIN 5 MG TABLET PO ONE (22:42)
[2021-05-05] MEDS ORDERED: ASCORBIC ACID 500 MG TABLET ONE (22:42)
[2021-05-06] MEDS: ZINC SULFATE 220 MG CAP PO SCH (09:00)
[2021-05-06] MEDS ORDERED: REMDESIVIR (EUA) 200 MG in NA CHLORIDE 0.9% 250 ML IV ONE (09:00)
[2021-05-06] MEDS: VITAMIN D 5,000 UNIT CAP PO SCH (09:00)
[2021-05-06] MEDS ORDERED: IVERMECTIN 3 MG TABLET PO SCH (09:00)
[2021-05-06] MEDS: APIXABAN 5 MG TABLET PO SCH ×2 (09:00→20:35)
[2021-05-06] MEDS: METHYLPREDNISOLONE 40 MG INJ IV SCH (09:00)
[2021-05-06] MEDS: ASCORBIC ACID 500 MG TABLET PO SCH ×2 (09:00→20:35)
--- NOTE | 2021-05-06 11:09 | P.PN ---
Subjective Date of Service: 05/06/21 Primary Care Provider: Ken Florian Chief Complaint: covid pneumonia. Subjective: Improving (Patient brushing his teeth without oxygen) Review of Systems 10-point ROS is otherwise unremarkable Respiratory: Cough (improved) Physical Examination - Vital Signs Temperature: 98 F Blood Pressure: 110/59 Pulse: 76 Respirations: 18 Pulse Ox (%): 91 - Physical Exam General: Alert, In no apparent distress HEENT: Atraumatic, PERRLA, EOMI Neck: Supple, JVD not distended Respiratory: Clear to auscultation bilaterally, Normal air movement Cardiovascular: Regular rate/rhythm, Normal S1 S2 Gastrointestinal: Normal bowel sounds, No tenderness Musculoskeletal: No tenderness Integumentary: No rashes Neurological: Normal speech, Normal tone, Normal affect Lymphatics: No axilla or inguinal lymphadenopathy - Studies Laboratory Data (last 24 hrs) 05/05/21 14:30: PT 13.9 H, INR 1.21, APTT 30.2 05/05/21 14:30: WBC 3.90 L, Hgb 14.4, Hct 41.7, Plt Count 146 L 05/05/21 14:30: Sodium 135 L, Potassium 3.4 L, BUN 14, Creatinine 0.88, Glucose 104, Total Bilirubin 0.9, AST 58 H, ALT 66, Alkaline Phosphatase 86, Lipase 114 Microbiology Data (last 24 hrs): 05/05/21 14:27 Throat Group A Streptococcus Rapid Screen - Final 05/05/21 14:27 Nasopharnyx Influenza Type A Antigen Screen - Final 05/05/21 14:27 Nasopharnyx Influenza Type B Antigen Screen - Final Assessment & Plan - Problems (Diagnosis) (1) COVID Current Visit: Yes Status: Acute Plan: will admit the patient. Start oxygen, fluids, steroids. Will use ivermectin as well as remdesivir. Have discussed the patient with Dr. Rucker. 05/06 Patient has improved greatly. Will continue steroids and oxygen. He had a spO2 of 88 after brushing his teeth. Will have Dr Rucker see the patient today. If he is stable this evening or by the morning we can plan on discharging him (2) Hyperlipidemia Current Visit: Yes Status: Chronic Plan: will check a cholesterol in the am. Qualifiers: Hyperlipidemia type: mixed hyperlipidemia Qualified Code(s): E78.2 - Mixed hyperlipidemia Discharge Plan: Home Plan to discharge in: 24 Hours - Code Status/Comfort Care Code Status Assessed: No Physician Review: Patient Assessed, Agree with Above Assessment and Plan Critical Care: No Time Spent Managing Pts Care (In Minutes): 20
[2021-05-06 12:32] VITALS: O2SAT 90
--- NOTE | 2021-05-06 16:13 | P.CNS ---
Date of Consult: 05/06/21 Reason for Consult: STEPHID raffy Primary Care Provider: Ken Florian Chief Complaint: covid pneumonia. History of Present Illness: Age 60 Aw COVIDpenumonia doing better Sick for a week Allergies No Known Allergies Allergy (Verified 11/02/19 21:55) Home Medications: NK [No Home Meds] 05/05/21 - Past Medical/Surgical History Diabetic: No -: Appendectomy - Social History Alcohol use: No CD- Drugs: No Caffeine use: Yes Review of Systems Respiratory: Shortness of Breath Physical Examination Temp Pulse Resp BP Pulse Ox 97.8 F 78 20 119/60 91 05/06/21 12:00 05/06/21 12:00 05/06/21 12:00 05/06/21 12:00 05/06/21 12:00 General: Alert, In no apparent distress, Oriented x3, Cooperative - Problems (1) COVID Current Visit: Yes Status: Acute Plan: age 60 AW COVID penumonia/ LABs reviewed/ CW presentTherapy CXYR minila changes/ poss DC home am
--- NOTE | 2021-05-06 17:30 | RAD REPORT ---
EXAM DESCRIPTION: RAD - Chest Single View - 05/06/2021 5:12 pm CLINICAL HISTORY: COVID penumonia COMPARISON: May 05 TECHNIQUE: AP portable chest image was obtained 05/06/2021 5:12 pm . FINDINGS: Lung volumes are low. This accentuates underlying lung parenchymal disease. Patchy airspac e opacification present similar or slightly worse than the comparison. Pattern would be consistent wi th a COVID-19 pneumonia. No measurable pleural effusion and no pneumothorax. No acute bony abnormalit y seen. No acute aortic findings suspected. IMPRESSION: Bilateral COVID-19 pneumonia pattern similar or slightly worse than the comparison.
[2021-05-06] MEDS ORDERED: GUAIFENESIN/CODEINE 5ML UCUP PO PRN (20:20)
[2021-05-06] MEDS: METHYLPREDNISOLONE 125 MG INJ IV SCH (20:35)
[2021-05-06] MEDS: MELATONIN 3 MG TABLET PO SCH (20:35)
[2021-05-07 07:26] LABS: Absolute Lymphocytes (CBC) 0.5 K/uL (0.7-4.9); Basophils % 0.1 % (0-1.3); Hematocrit 37.7 % (39.6-49.0); MPV 9.1 fL (7.6-11.3); RBC Red Blood Cell Count 4.14 M/uL (4.33-5.43)
[2021-05-07 07:36] LABS: Albumin 2.9 g/dL (3.4-5.0); Bilirubin Total 0.6 mg/dL (0.2-1.0); Potassium 4.1 mmol/L (3.5-5.1); Protein, Total 6.4 g/dL (6.4-8.2)
[2021-05-07] MEDS: VITAMIN D 5,000 UNIT CAP PO SCH (08:11)
[2021-05-07] MEDS: ZINC SULFATE 220 MG CAP PO SCH (08:11)
[2021-05-07] MEDS: APIXABAN 5 MG TABLET PO SCH ×2 (08:11→19:46)
[2021-05-07] MEDS: ASCORBIC ACID 500 MG TABLET PO SCH ×2 (08:11→19:46)
[2021-05-07] MEDS: METHYLPREDNISOLONE 125 MG INJ IV SCH ×2 (08:11→19:46)
[2021-05-07 08:34] LABS: Albumin 2.9 g/dL (3.4-5.0); Bilirubin Direct 0.2 mg/dL (0-0.2); Bilirubin Total 0.6 mg/dL (0.2-1.0); Protein, Total 6.4 g/dL (6.4-8.2)
--- NOTE | 2021-05-07 08:47 | RAD REPORT ---
EXAM DESCRIPTION: RAD - Chest Single View - 05/07/2021 4:48 am CLINICAL HISTORY: covid penumonia Chest pain. COMPARISON: Chest Single View dated 05/06/2021; Chest Single View dated 05/05/2021; Chest Single View dated 11/02/2019; CHEST SINGLE VIEW dated 02/17/2011 FINDINGS: Portable technique limits examination quality. [id number] bilateral interstitial lung opacities appear essentially unchanged since comparative study. The heart is normal in size. No displaced fractures. IMPRESSION: Stable chest since yesterday's examination.
[2021-05-07] MEDS: REMDESIVIR (EUA) 100 MG in NA CHLORIDE 0.9% 250 ML IV SCH (09:00)
[2021-05-07 09:34] LABS: Blood Morphology Comment NOT SEEN (NOT SEEN); Platelet Estimate ADEQ; White Blood Cell Scan OK (OK)
--- NOTE | 2021-05-07 13:09 | P.DS ---
Admission Date: 05/05/21 Discharge Date: 05/07/21 Primary Care Provider: Ken Florian Disposition: ROUTINE DISCHARGE Discharge Condition: GOOD Reason for Admission: covid pneumonia. - Problems (1) COVID Current Visit: Yes Status: Acute (2) Hyperlipidemia Current Visit: Yes Status: Chronic Qualifiers: Hyperlipidemia type: mixed hyperlipidemia Qualified Code(s): E78.2 - Mixed hyperlipidemia Brief History of Present Illness: Patient is a pleasant gentleman. He has a history of hyperlipidemia. 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 The patient has recieved only one dose of the vaccine. He has had 2 days of fever and cough. Decided to come to the ER. Was initially found to be in the 90% oxygen range. However despite supplemental oxygen and steroids the patient started to desaturate into the 80% He is currently stable on 5lts nc. Hospital Course: Patient was admitted to the hospital for covid. He recieved steroids and 3 doses of remdesivir. His cough and sob resolved. He did get some occasional hypoxia. He is doing well. Will discharge him on steroids, eliquis and the vitamin supplementations Vital Signs/Physical Exam: Temp Pulse Resp BP Pulse Ox 98.6 F 77 20 120/59 L 89 L 05/07/21 08:00 05/07/21 08:00 05/07/21 08:00 05/07/21 08:00 05/07/21 08:00 General: Alert, In no apparent distress HEENT: Atraumatic, PERRLA, EOMI Neck: Supple, JVD not distended Respiratory: Clear to auscultation bilaterally, Normal air movement Cardiovascular: Regular rate/rhythm, Normal S1 S2 Gastrointestinal: Normal bowel sounds, No tenderness Musculoskeletal: No tenderness Integumentary: No rashes Neurological: Normal speech, Normal tone, Normal affect Lymphatics: No axilla or inguinal lymphadenopathy Laboratory Data at Discharge: WBC 9.50 K/uL (4.3-10.9) D 05/07/21 06:17 Hgb 12.9 g/dL (13.6-17.9) L 05/07/21 06:17 Hct 37.7 % (39.6-49.0) L 05/07/21 06:17 Plt Count 193 K/uL (152-406) D 05/07/21 06:17 PT 13.9 SECONDS (9.5-12.5) H 05/05/21 14:30 INR 1.21 05/05/21 14:30 APTT 30.2 SECONDS (24.3-36.9) 05/05/21 14:30 Sodium 140 mmol/L (136-145) 05/07/21 06:17 Potassium 4.1 mmol/L (3.5-5.1) 05/07/21 06:17 BUN 20 mg/dL (7-18) H 05/07/21 06:17 Creatinine 0.89 mg/dL (0.55-1.3) 05/07/21 06:17 Glucose 153 mg/dL (74-106) H 05/07/21 06:17 Total Bilirubin 0.6 mg/dL (0.2-1.0) 05/07/21 06:17 Total Bilirubin 0.6 mg/dL (0.2-1.0) 05/07/21 06:17 AST 67 U/L (15-37) H 05/07/21 06:17 AST 72 U/L (15-37) H 05/07/21 06:17 ALT 95 U/L (12-78) H 05/07/21 06:17 ALT 98 U/L (12-78) H 05/07/21 06:17 Alkaline Phosphatase 87 U/L (45-117) 05/07/21 06:17 Alkaline Phosphatase 88 U/L (45-117) 05/07/21 06:17 Lipase 114 U/L (73-393) 05/05/21 14:30 Home Medications: Apixaban [Eliquis] 5 mg PO BID 15 Days #30 tablet 05/07/21 Ascorbic Acid [C-1000] 1,000 mg PO BID 30 Days #60 tablet.er 05/07/21 Dexamethasone [Decadron] 6 mg PO DAILY 7 Days #7 tablet 05/07/21 Zinc 50 mg PO DAILY 30 Days #30 tablet 05/07/21 New Medications: Ascorbic Acid [C-1000] 1,000 mg PO BID 30 Days #60 tablet.er Dexamethasone [Decadron] 6 mg PO DAILY 7 Days #7 tablet Apixaban [Eliquis] 5 mg PO BID 15 Days #30 tablet Zinc 50 mg PO DAILY 30 Days #30 tablet Diet: Regular Activity: Ad dejan Followup: Pilar,Grayson, MD [ACTIVE - CAN ADMIT] - 1-2 Weeks Time spent managing pt's care (in minutes): 20
[2021-05-07] MEDS: MELATONIN 3 MG TABLET PO SCH (19:46)
[2021-05-08 06:22] LABS: Absolute Lymphocytes (CBC) 0.4 K/uL (0.7-4.9); Basophils % 0.3 % (0-1.3); Hematocrit 37.8 % (39.6-49.0); Lymphocytes % 5.2 % (15.3-44.8); MPV 8.4 fL (7.6-11.3); RBC Red Blood Cell Count 4.16 M/uL (4.33-5.43)
[2021-05-08 06:50] LABS: ALT/SGPT 153 U/L (12-78); AST/SGOT 89 U/L (15-37); Albumin 2.9 g/dL (3.4-5.0); Alkaline Phosphatase 90 U/L (45-117); BUN Blood Urea Nitrogen 20 mg/dL (7-18); Bicarbonate 28 mmol/L (21-32); Bilirubin Direct 0.2 mg/dL (0-0.2); Bilirubin Total 0.7 mg/dL (0.2-1.0); Glucose Level 174 mg/dL (74-106); Potassium 4.2 mmol/L (3.5-5.1); Protein, Total 6.4 g/dL (6.4-8.2); Sodium Level 140 mmol/L (136-145)
--- NOTE | 2021-05-08 07:23 | RAD REPORT ---
EXAM DESCRIPTION: RAD - Chest Single View - 05/08/2021 4:44 am CLINICAL HISTORY: covid penumonia COMPARISON: Chest Single View dated 05/07/2021; Chest Single View dated 05/06/2021; Chest Single View dated 05/05/2021; Chest Single View dated 11/02/2019 FINDINGS: Lines: None. Lungs: Mild to moderate patchy airspace disease bilaterally. Pleural: No significant pleural effusions or pneumothorax. Cardiac: The heart size is within normal limits. Bones: No acute fractures. Other: IMPRESSION: Similar mild to mild bilateral airspace disease compared with 05/07/2021
[2021-05-08] MEDS: METHYLPREDNISOLONE 125 MG INJ IV SCH (08:27)
[2021-05-08] MEDS: VITAMIN D 5,000 UNIT CAP PO SCH (08:29)
[2021-05-08] MEDS: ZINC SULFATE 220 MG CAP PO SCH (08:29)
[2021-05-08] MEDS: APIXABAN 5 MG TABLET PO SCH (08:29)
[2021-05-08] MEDS: ASCORBIC ACID 500 MG TABLET PO SCH (08:29)
[2021-05-08] MEDS: REMDESIVIR (EUA) 100 MG in NA CHLORIDE 0.9% 250 ML IV SCH (10:14)
--- NOTE | 2021-05-08 12:02 | P.PN ---
Subjective Date of Service: 05/08/21 Primary Care Provider: Ken Florian Chief Complaint: covid pneumonia. Subjective: No new changes (Patient discharge held yesterday as we could not get him home oxygen) Review of Systems 10-point ROS is otherwise unremarkable Physical Examination - Vital Signs Temperature: 98.1 F Blood Pressure: 126/64 Pulse: 74 Respirations: 16 Pulse Ox (%): 90 - Physical Exam General: Alert, In no apparent distress HEENT: Atraumatic, PERRLA, EOMI Neck: Supple, JVD not distended Respiratory: Clear to auscultation bilaterally, Normal air movement Cardiovascular: Regular rate/rhythm, Normal S1 S2 Gastrointestinal: Normal bowel sounds, No tenderness Musculoskeletal: No tenderness Integumentary: No rashes Neurological: Normal speech, Normal tone, Normal affect Lymphatics: No axilla or inguinal lymphadenopathy - Studies Microbiology Data (last 24 hrs): 05/05/21 14:27 Throat Culture & Sensitivity - Final NORMAL UPPER RESPIRATORY MARNI GROWN. Assessment & Plan - Problems (Diagnosis) (1) COVID Current Visit: Yes Status: Acute Plan: will admit the patient. Start oxygen, fluids, steroids. Will use ivermectin as well as remdesivir. Have discussed the patient with Dr. Rucker. 05/08 Patient is stable. He desaturates when walking with oxygen to 82%. However no symptoms. Recovers quickly at rest. Will discharge once home oxygen is obtained. (2) Hyperlipidemia Current Visit: Yes Status: Chronic Plan: will check a cholesterol in the am. Qualifiers: Hyperlipidemia type: mixed hyperlipidemia Qualified Code(s): E78.2 - Mixed hyperlipidemia Physician Review: Patient Assessed, Agree with Above Assessment and Plan Critical Care: No Time Spent Managing Pts Care (In Minutes): 25
[2021-05-08 17:29] VITALS: BP 133/76; TEMP 98
== END 2021-05-08 17:30 | disposition home or self-care (01) | DRG 177 ==
LOC: ER 13:03 → ERHOLD 18:21 → 4TH 22:34
PROVIDERS: ADMIT Internal Medicine; ATTEND Internal Medicine
PROC: XW033E5 Introduction of Remdesivir Anti-infective into Peripheral Vein, Percutaneous Approach, New Technology Group 5 (ICD-10-PCS; principal; 2021-05-07)
DX: U07.1 COVID-19 (principal); J12.82 Pneumonia due to coronavirus disease 2019; R09.02 Hypoxemia; E78.2 Mixed hyperlipidemia
CPT/HCPCS: 36415; 71045; 80048; 80053; 80076; 82248; 82728; 83605; 83690; 84145; 84484; 85025; 85379; 85610; 85730; 86140; 87070; 87081; 87804; 93005; 93970; 96361; 96374; 99285; J2405; J2920; J2930; J7030; J7050

== ENCOUNTER 2021-05-09 07:14 | Inpatient (IN) | payer OTHER ==
[2021-05-09 07:43] LABS: Absolute Lymphocytes (CBC) 0.7 K/uL (0.7-4.9); Basophils % 0.2 % (0-1.3); Hematocrit 40.8 % (39.6-49.0); Lymphocytes % 7.5 % (15.3-44.8); MPV 8.4 fL (7.6-11.3)
[2021-05-09 07:51] LABS: Protime INR 1.15
[2021-05-09 08:05] LABS: ALT/SGPT 174 U/L (12-78); AST/SGOT 62 U/L (15-37); Albumin 3.1 g/dL (3.4-5.0); Alkaline Phosphatase 94 U/L (45-117); Amylase 48 U/L (25-115); BUN Blood Urea Nitrogen 15 mg/dL (7-18); Bicarbonate 27 mmol/L (21-32); Bilirubin Direct 0.2 mg/dL (0-0.2); Creatine Phosphokinase 72 U/L (39-308); Glucose Level 99 mg/dL (74-106); Lipase 163 U/L (73-393); Potassium 3.4 mmol/L (3.5-5.1); Protein, Total 6.7 g/dL (6.4-8.2); Sodium Level 139 mmol/L (136-145); Troponin (Emerg Dept Use Only) < 0.02 ng/mL (0.0-0.045)
[2021-05-09 08:08] LABS: CKMB Creatine Kinase MB < 1.0 ng/mL (1.0-3.6)
--- NOTE | 2021-05-09 09:06 | EDPHYS ---
Physician Documentation [facility] Name: Horacio Sanchez Age: 60 yrs Sex: Male : 1960 Arrival Date: 05/09/2021 Time: 07:15 Bed 7 Private MD: ED Physician Gab Luo HPI: 05/09 07:33 This 60 yrs old Male presents to ER via EMS with complaints of Shortness Of kdr Breath, COVID+. 07:33 The patient has shortness of breath at rest, with light activity. Onset: The kdr symptoms/episode began/occurred gradually, yesterday. Duration: The symptoms are continuous, and are steadily getting worse. The patient's shortness of breath is aggravated by exertion, light activity, is alleviated by nothing. Associated signs and symptoms: Pertinent positives: diaphoresis, Claustrophobia. Severity of symptoms: At their worst the symptoms were mild moderate just prior to arrival, in the emergency department the symptoms are unchanged. The patient has experienced a previous episode, last week. The patient has been recently seen at the [facility] Emergency Department, The patient has been recently been admitted at [facility], was discharged yesterday. Patient states that he was discharged home yesterday from this facility. He indicated he felt fine or at least reasonably well at discharge. Over the evening he became progressively more short of breath and he gave him a claustrophobic feeling. He also states he got diaphoretic. When EMS arrived his oxygen saturation was 82% on 4 L. In the ED he was initially 84% on 6 L. He appears in mild distress but is otherwise nontoxic appearing. Historical: - Allergies: 07:18 No Known Allergies; hb - PMHx: 07:18 High Cholesterol; hb - Immunization history:: Adult Immunizations up to date. - Social history:: Smoking status: Patient denies any tobacco usage or history of. ROS: 07:33 Constitutional: Negative for fever, chills, and weight loss, Eyes: Negative for injury, kdr pain, redness, and discharge, ENT: Negative for injury, pain, and discharge, Neck: Negative for injury, pain, and swelling, Cardiovascular: Negative for chest pain, palpitations, and edema, Abdomen/GI: Negative for abdominal pain, nausea, vomiting, diarrhea, and constipation, Back: Negative for injury and pain, : Negative for injury, bleeding, discharge, and swelling, MS/Extremity: Negative for injury and deformity, Skin: Negative for injury, rash, and discoloration, Neuro: Negative for headache, weakness, numbness, tingling, and seizure activity. Psych: Negative for depression, anxiety, suicide ideation, homicidal ideation, and hallucinations, Allergy/Immunology: Negative for hives, rash, and allergies, Endocrine: Negative for neck swelling, polydipsia, polyuria, polyphagia, and marked weight changes, Hematologic/Lymphatic: Negative for swollen nodes, abnormal bleeding, and unusual bruising. 07:33 Respiratory: Positive for cough, with no reported sputum, dyspnea on exertion, shortness of breath, wheezing, expiratory. Exam: 07:33 Constitutional: This is a well developed, well nourished patient who is awake, alert, kdr and in no acute distress. Head/Face: Normocephalic, atraumatic. Eyes: Pupils equal round and reactive to light, extra-ocular motions intact. Lids and lashes normal. Conjunctiva and sclera are non-icteric and not injected. Cornea within normal limits. Periorbital areas with no swelling, redness, or edema. Neck: Trachea midline, no thyromegaly or masses palpated, and no cervical lymphadenopathy. Supple, full range of motion without nuchal rigidity, or vertebral point tenderness. No Meningismus. Chest/axilla: Normal chest wall appearance and motion. Nontender with no deformity. No lesions are appreciated. Cardiovascular: Regular rate and rhythm with a normal S1 and S2. No gallops, murmurs, or rubs. Normal PMI, no JVD. No pulse deficits. Abdomen/GI: Soft, non-tender, with normal bowel sounds. No distension or tympany. No guarding or rebound. No evidence of tenderness throughout. Back: No spinal tenderness. No costovertebral tenderness. Full range of motion. Skin: Warm, dry with normal turgor. Normal color with no rashes, no lesions, and no evidence of cellulitis. MS/ Extremity: Pulses equal, no cyanosis. Neurovascular intact. Full, normal range of motion. Neuro: Awake and alert, GCS 15, oriented to person, place, time, and situation. Cranial nerves II-XII grossly intact. Motor strength 5/5 in all extremities. Sensory grossly intact. Cerebellar exam normal. Normal gait. Psych: Awake, alert, with orientation to person, place and time. Behavior, mood, and affect are within normal limits. 07:33 Respiratory: mild respiratory distress is noted, Respirations: labored breathing, that is mild, Breath sounds: rales, that are moderate, are scattered, are heard diffusely. Vital Signs: 07:15 BP 136 / 76; Pulse 89; Resp 40; Temp 98.3; Pulse Ox 83% on 6 lpm NC; Weight 127.01 kg; hb Height 6 ft. 1 in. (185.42 cm); Pain 0/10; 08:48 BP 127 / 75; Pulse 84; Resp 22; Pulse Ox 93% on 10 lpm NC; hb 07:15 Body Mass Index 36.94 (127.01 kg, 185.42 cm) hb MDM: 07:33 Data reviewed: vital signs, nurses notes, lab test result(s), radiologic studies. kdr Counseling: I had a detailed discussion with the patient and/or guardian regarding: the historical points, exam findings, and any diagnostic results supporting the discharge/admit diagnosis, lab results, radiology results, the need for further work-up and treatment in the hospital. 09:05 Patient medically screened. kdr 05/09 07:29 Order name: Amylase, Serum; Complete Time: 08:43 hb 05/09 07:29 Order name: Basic Metabolic Panel; Complete Time: 08:43 hb 05/09 07:29 Order name: Blood Culture Adult (2) hb 05/09 07:29 Order name: CBC with Diff; Complete Time: 08:43 hb 05/09 07:29 Order name: CPK; Complete Time: 08:43 hb 05/09 07:29 Order name: Ckmb; Complete Time: 08:43 hb 05/09 07:29 Order name: LFT's; Complete Time: 08:43 hb 05/09 07:29 Order name: Lactate; Complete Time: 08:43 hb 05/09 07:29 Order name: Lipase; Complete Time: 08:43 hb 05/09 07:29 Order name: Procalcitonin; Complete Time: 08:43 hb 05/09 07:29 Order name: Protime (+inr); Complete Time: 08:43 hb 05/09 07:29 Order name: Ptt, Activated; Complete Time: 08:43 hb 05/09 07:29 Order name: Troponin (emerg Dept Use Only); Complete Time: 08:43 hb 05/09 07:29 Order name: Urine Microscopic Only hb 05/09 07:29 Order name: Chest Single View XRAY hb 05/09 07:57 Order name: Glucose, Ancillary Testing; Complete Time: 08:43 EDMS 05/09 09:17 Order name: Basic Metabolic Panel EDMS 05/09 09:17 Order name: Basic Metabolic Panel EDMS 05/09 09:17 Order name: CBC with Automated Diff EDMS 05/09 09:17 Order name: NT PRO-BNP EDMS 05/09 09:17 Order name: NT PRO-BNP EDMS 05/09 09:17 Order name: Troponin I EDMS 05/09 09:17 Order name: Troponin I EDMS 05/09 09:17 Order name: Troponin I EDMS 05/09 09:17 Order name: Respiratory Therapy Consult EDMS 05/09 09:17 Order name: CBC with Automated Diff EDMS 05/09 07:29 Order name: Accucheck; Complete Time: 08:27 hb 05/09 07:29 Order name: Cardiac monitoring; Complete Time: 07:39 hb 05/09 07:29 Order name: EKG - Nurse/Tech; Complete Time: 08:27 hb 05/09 07:29 Order name: IV Saline Lock - Large Bore; Complete Time: 07:39 hb 05/09 07:29 Order name: Labs collected and sent; Complete Time: 07:39 hb 05/09 07:29 Order name: O2 Per Protocol; Complete Time: 07:39 hb 05/09 07:29 Order name: O2 Sat Monitoring; Complete Time: 07:39 hb 05/09 07:29 Order name: Urine Dipstick-Ancillary (obtain specimen); Complete Time: 18:36 hb Administered Medications: 08:27 Not Given (CANCEL PER DR Montoya): NS 0.9% (30 ml/kg) 30 ml/kg IV at bolus once; hb Sepsis Protocol 09:28 Drug: SOLU-Medrol (methylPrednisoLONE) 80 mg Route: IVP; Site: right antecubital; hb 10:12 Follow up: Response: No adverse reaction hb 12:40 Drug: Zofran (Ondansetron) 4 mg Route: IVP; Site: right antecubital; hb 14:33 CANCELLED (Duplicate Order): Zofran (Ondansetron) 4 mg IVP once; over 2 minutes hb Disposition Summary: 05/09/21 09:05 Hospitalization Ordered Hospitalization Status: Inpatient Admission kdr Provider: Grayson Quezada Condition: Fair kdr Problem: an ongoing problem kdr Symptoms: have worsened kdr Bed/Room Type: Standard [facility] Location: Telemetry/MedSurg (Inpatient)(05/09/21 20:38) Room Assignment: [facility](05/09/21 20:38) Diagnosis - SARS-associated coronavirus as the cause of diseases classified elsewhere kdr - Acute and chronic respiratory failure with hypoxia - 86% on 6 L on admission to the [facility] ED - Other viral pneumonia kdr Forms: - Medication Reconciliation Form kdr - SBAR form kdr Signatures: Dispatcher [employer] EDMS Gab Luo MD MD kdr Danielle Castillo RN RN cg Coco Escobar RN RN hb Corrections: (The following items were deleted from the chart) 14:33 14:32 Zofran (Ondansetron) 4 mg IVP once; over 2 minutes ordered. hb hb 14:57 09:05 Telemetry/MedSurg (Inpatient) kdr hb 14:57 09:05 kdr hb 20:38 14:57 [facility] ER HOLD hb cg 20:38 14:57 ERHOLD- hb cg
--- NOTE | 2021-05-09 09:06 | ER ---
Nurse's Notes [facility] Name: Horacio Sanchez Age: 60 yrs Sex: Male : 1960 Arrival Date: 05/09/2021 Time: 07:15 Bed 7 Private MD: Diagnosis: SARS-associated coronavirus as the cause of diseases classified elsewhere;Acute and chronic respiratory failure with hypoxia-86% on 6 L on admission to the ED;Other viral pneumonia Presentation: 05/09 07:15 Chief complaint: EMS states: Inpatient for 1 week with COVID, discharged on home O2 hb yesterday, c/o SOB today. On scene 82% on 4LNC, improved to 89% on 6LNC. Coronavirus screen: Client presents with at least one sign or symptom that may indicate coronavirus-19. Standard/surgical mask placed on the client. Provider contacted for isolation considerations. Ebola Screen: No symptoms or risks identified at this time. Initial Sepsis Screen: Does the patient meet any 2 criteria? Yes Does the patient have a suspected source of infection? Yes:. Risk Assessment: Do you want to hurt yourself or someone else? Patient reports no desire to harm self or others. Onset of symptoms was May 09, 2021. 07:15 Method Of Arrival: EMS: [facility] hb 07:15 Acuity: LILA 2 hb Triage Assessment: 07:18 General: Appears uncomfortable, Behavior is calm, cooperative. Pain: Denies pain. EENT: hb No signs and/or symptoms were reported regarding the EENT system. Neuro: Level of Consciousness is awake, alert, obeys commands, Oriented to person, place, time, situation. Cardiovascular: Patient's skin is warm and dry. Rhythm is regular. Respiratory: Reports shortness of breath at rest Respiratory effort is even, labored, Respiratory pattern is tachypnea. GI: No signs and/or symptoms were reported involving the gastrointestinal system. : No signs and/or symptoms were reported regarding the genitourinary system. Derm: Skin is pink, warm \T\ dry. Musculoskeletal: No signs and/or symptoms reported regarding the musculoskeletal system. Historical: - Allergies: 07:18 No Known Allergies; hb - PMHx: 07:18 High Cholesterol; hb - Immunization history:: Adult Immunizations up to date. - Social history:: Smoking status: Patient denies any tobacco usage or history of. Screenin:19 Abuse screen: Denies threats or abuse. Denies injuries from another. Nutritional hb screening: No deficits noted. Tuberculosis screening: No symptoms or risk factors identified. Fall Risk None identified. Assessment: 07:19 General: see triage. hb 08:48 Reassessment: Patient appears in no apparent distress at this time. Patient and/or hb family updated on plan of care and expected duration. Pain level reassessed. Patient is alert, oriented x 3, equal unlabored respirations, skin warm/dry/pink. Vital Signs: 07:15 BP 136 / 76; Pulse 89; Resp 40; Temp 98.3; Pulse Ox 83% on 6 lpm NC; Weight 127.01 kg; hb Height 6 ft. 1 in. (185.42 cm); Pain 0/10; 08:48 BP 127 / 75; Pulse 84; Resp 22; Pulse Ox 93% on 10 lpm NC; hb 07:15 Body Mass Index 36.94 (127.01 kg, 185.42 cm) hb ED Course: 07:15 Patient arrived in ED. hb 07:18 Triage completed. hb 07:18 Gab Luo MD is Attending Physician. kdr 07:18 Arm band placed on. hb 07:19 Patient has correct armband on for positive identification. hb 07:25 First set of blood cultures drawn by me. Inserted saline lock: 20 gauge in right dh3 forearm, using aseptic technique. Blood collected. 07:28 Initial lab(s) drawn, by nh, sent to lab. Second set of blood cultures drawn by nh. dh3 07:51 Coco Escobar, VIBHA is Primary Nurse. hb 08:45 EKG done, by ED staff, reviewed by Gab Luo MD. dh3 08:58 Chest Single View XRAY In Process Unspecified. EDMS 09:04 Grayson Quezada MD is Hospitalizing Provider. kdr 09:24 No provider procedures requiring assistance completed. Patient admitted, IV remains in hb place. Administered Medications: 08:27 Not Given (CANCEL PER DR Montoya): NS 0.9% (30 ml/kg) 30 ml/kg IV at bolus once; Sepsis Protocol 09:28 Drug: SOLU-Medrol (methylPrednisoLONE) 80 mg Route: IVP; Site: right antecubital; hb 10:12 Follow up: Response: No adverse reaction hb 12:40 Drug: Zofran (Ondansetron) 4 mg Route: IVP; Site: right antecubital; hb 14:33 CANCELLED (Duplicate Order): Zofran (Ondansetron) 4 mg IVP once; over 2 minutes hb Outcome: 09:05 Decision to Hospitalize by Provider. kdr 09:24 Admitted to ER Hold. Please see [facility] for further documentation. hb 09:24 Condition: stable 09:24 Instructed on the need for admit, Demonstrated understanding of instructions. 21:33 Patient left the ED. ea Signatures: Dispatcher [employer] EDMS Gab Luo MD MD kdr Baxter, Heather, RN RN Anjelica Boudreaux [facility] Debora Hernandez RN RN ea
[2021-05-09] MEDS ORDERED: ALBUTEROL 2.5 MG/3 ML NEB SOL NEB PRN (09:11)
[2021-05-09] MEDS ORDERED: IPRATROPIUM BROM 0.5MG/2.5ML NEB PRN (09:11)
--- NOTE | 2021-05-09 09:30 | RAD REPORT ---
EXAM DESCRIPTION: RAD - Chest Single View - 05/09/2021 8:58 am CLINICAL HISTORY: DYSPNEA, recent hospitalization for COVID pneumonia COMPARISON: May 08 portable TECHNIQUE: AP portable chest image was obtained 05/09/2021 8:58 am . FINDINGS: Lungs are slightly underinflated. Bilateral, peripheral airspace opacification is present, a well described COVID-19 pneumonia pattern. Adjusting for the lower lung volume, lung parenchymal d isease is similar to comparison. Heart and vasculature are normal. No measurable pleural effusion and no pneumothorax. No acute bony abnormality seen. No acute aortic findings suspected. IMPRESSION: [id number] bilateral COVID-19 pneumonia pattern not substantially different compar popeye.
[2021-05-09 09:41] VITALS: BMI 36.9
[2021-05-09] MEDS ORDERED: ONDANSETRON 4 MG/2 ML VIAL ONE (13:06)
[2021-05-09] MEDS: clonazePAM 1 MG TAB PO PRN (14:30)
[2021-05-09] MEDS ORDERED: clonazePAM 1 MG TAB ONE (14:49)
[2021-05-09] MEDS ORDERED: ONDANSETRON 4 MG/2 ML VIAL IV PRN (14:58)
[2021-05-09] MEDS ORDERED: PROMETHAZINE INJ 25 MG/ML AMP IM PRN (14:58)
--- NOTE | 2021-05-09 18:44 | P.HP ---
Certification for Inpatient Patient admitted to: Inpatient With expected LOS: >2 Midnights Practitioner: I am a practitioner with admitting privileges, knowledge of patient current condition, hospital course, and medical plan of care. Services: Services provided to patient in accordance with Admission requirements found in Title 42 Section 412.3 of the Code of Federal Regulations Patient History Date of Service: 05/09/21 Primary Care Provider: Pilar Reason for admission: covid 19 History of Present Illness: Patient was discharged yesterday with home oxygen and steroids. He started having nasal congestion in the evening and worsening shortness of breath. The patient called an ambulance and was found to have an spo2 in the 80% He was started on high flow oxygen and brought back to the ER. The patient is complainting of nasal congestion as well. Allergies No Known Allergies Allergy (Verified 11/02/19 21:55) Home Medications: Apixaban [Eliquis] 5 mg PO BID 15 Days #30 tablet 05/07/21 Ascorbic Acid [C-1000] 1,000 mg PO BID 30 Days #60 tablet.er 05/07/21 Dexamethasone [Decadron] 6 mg PO DAILY 7 Days #7 tablet 05/07/21 Zinc 50 mg PO DAILY 30 Days #30 tablet 05/07/21 Cholecalciferol (Vitamin D3) [Vitamin D 5,000 Iu Cap] 5,000 unit PO DAILY 90 Days #90 cap 05/08/21 - Past Medical/Surgical History Has patient received pneumonia vaccine in the past: No Diabetic: No -: Appendectomy - Social History Smoking Status: Never smoker Alcohol use: No CD- Drugs: No Caffeine use: Yes Review of Systems ENT: Nose Congestion Respiratory: Shortness of Breath Physical Examination - Vital Signs Blood Pressure: 144/77 Pulse: 82 Respirations: 17 - Physical Exam General: Alert, In no apparent distress, Moderate distress HEENT: Atraumatic, PERRLA, Mucous membr. moist/pink, EOMI, Sclerae nonicteric Neck: Supple, 2+ carotid pulse no bruit, No LAD, Without JVD or thyroid abnormality Respiratory: Normal air movement, Crackles/rales Cardiovascular: Regular rate/rhythm, Normal S1 S2 Gastrointestinal: Normal bowel sounds, No tenderness Musculoskeletal: No tenderness Integumentary: No rashes Neurological: Normal gait, Normal speech, Normal strength at 5/5 x4 extr, Normal tone, Normal affect Lymphatics: No axilla or inguinal lymphadenopathy - Studies Laboratory Data (last 24 hrs) 05/09/21 07:28: PT 13.2 H, INR 1.15, APTT 26.0 05/09/21 07:28: WBC 8.70, Hgb 14.0, Hct 40.8, Plt Count 227 05/09/21 07:28: Sodium 139, Potassium 3.4 L, BUN 15, Creatinine 0.64, Glucose 99, Total Bilirubin 1.0, AST 62 H, ALT 174 H, Alkaline Phosphatase 94, Amylase 48, Lipase 163 Assessment and Plan - Problems (Diagnosis) (1) COVID Current Visit: No Status: Acute Plan: Patient is doing poorly. Restart solumedrol. Will give him the last dose of remdesivir. Start him on iodine nasal rinses to decrease the covid in he nasal cavity. Will start him on asorbic acid, vitamin d and zin. (2) Hyperlipidemia Current Visit: No Status: Chronic Plan: will treat with atorvastatin for now. Qualifiers: Discharge Plan: Home Plan to discharge in: Greater than 2 days - Advance Directives Does patient have a Living Will: No Does patient have a Durable POA for Healthcare: No - Code Status/Comfort Care Code Status Assessed: No Code Status: Full Code Physician Review: Patient Assessed, Agree with Above Assessment and Plan Critical Care: No Time Spent Managing Pts Care (In Minutes): 45
[2021-05-09] MEDS ORDERED: REMDESIVIR (EUA) 100 MG in NA CHLORIDE 0.9% 250 ML IV ONE (19:00)
[2021-05-09] MEDS: APIXABAN 5 MG TABLET PO SCH (20:29)
[2021-05-09] MEDS: ATORVASTATIN 10 MG TAB PO SCH (20:29)
[2021-05-09] MEDS ORDERED: ATORVASTATIN 20 MG TAB ONE (20:33)
[2021-05-09] MEDS ORDERED: APIXABAN 5 MG TABLET ONE (20:33)
[2021-05-09] MEDS ORDERED: HYDROCORTISONE SUC 100 MG INJ ONE (20:34)
[2021-05-09] MEDS: CHLORHEXIDINE 0.12% 473ML BOT MM SCH (21:00)
[2021-05-09] MEDS: METHYLPREDNISOLONE 40 MG INJ IV SCH (21:00)
[2021-05-10 04:49] LABS: Absolute Lymphocytes (CBC) 0.4 K/uL (0.7-4.9); Basophils % 0.2 % (0-1.3); Hematocrit 37.7 % (39.6-49.0); Lymphocytes % 5.5 % (15.3-44.8); MPV 8.5 fL (7.6-11.3); RBC Red Blood Cell Count 4.15 M/uL (4.33-5.43)
[2021-05-10 05:17] LABS: ALT/SGPT 133 U/L (12-78); AST/SGOT 33 U/L (15-37); Albumin 2.7 g/dL (3.4-5.0); Alkaline Phosphatase 83 U/L (45-117); BUN Blood Urea Nitrogen 13 mg/dL (7-18); Bicarbonate 29 mmol/L (21-32); Glucose Level 170 mg/dL (74-106); NT PRO-BNP 135 pg/mL (<125); Potassium 3.9 mmol/L (3.5-5.1); Protein, Total 6.2 g/dL (6.4-8.2); Sodium Level 138 mmol/L (136-145)
[2021-05-10] MEDS: CHLORHEXIDINE 0.12% 473ML BOT MM SCH ×2 (09:00→20:54)
[2021-05-10] MEDS: FLUTICASONE 50MCG NASAL SPRAY NAS SCH (09:00)
[2021-05-10] MEDS: ASCORBIC ACID 500 MG TABLET PO SCH (10:39)
[2021-05-10] MEDS: METHYLPREDNISOLONE 40 MG INJ IV SCH ×2 (10:39→20:53)
[2021-05-10] MEDS: APIXABAN 5 MG TABLET PO SCH ×2 (10:39→20:53)
[2021-05-10] MEDS: VITAMIN D 5,000 UNIT CAP PO SCH (10:40)
[2021-05-10] MEDS: ZINC SULFATE 220 MG CAP PO SCH (10:40)
--- NOTE | 2021-05-10 12:02 | P.CNS ---
Date of Consult: 05/10/21 Primary Care Provider: Pilar Chief Complaint: covid 19 History of Present Illness: Patient is 60 years of age admitted with coronavirus pneumonia recently discharged came right back again with hypoxemia respiratory failure he is currently on high flow oxygen not doing too well Allergies No Known Allergies Allergy (Verified 11/02/19 21:55) Home Medications: NK [No Home Meds] 05/10/21 - Past Medical/Surgical History Diabetic: No -: Appendectomy - Social History Alcohol use: No CD- Drugs: No Caffeine use: Yes Review of Systems General: Weakness Respiratory: Shortness of Breath Physical Examination Temp Pulse Resp BP Pulse Ox 97.9 F 69 22 H 122/61 93 05/10/21 08:00 05/10/21 08:00 05/10/21 08:00 05/10/21 08:00 05/10/21 08:00 General: Alert, Cooperative, Moderate distress - Problems (1) COVID Current Visit: No Status: Acute Plan: Patient is 60 years of age admitted with respiratory failure from coronavirus he was recently discharged got worse now qualifies for Barcitinib continue with IV Solu-Medrol labs reviewed this x-ray shows interstitial changes Physician Review: Patient Assessed, Agree with Above Assessment and Plan
--- NOTE | 2021-05-10 12:03 | P.PN ---
Subjective Date of Service: 05/10/21 Primary Care Provider: Pilar Chief Complaint: covid 19 Subjective: Improving Review of Systems 10-point ROS is otherwise unremarkable Respiratory: Cough, Shortness of Breath Physical Examination - Vital Signs Temperature: 97.9 F Blood Pressure: 122/61 Pulse: 69 Respirations: 22 Pulse Ox (%): 93 - Physical Exam General: Alert, In no apparent distress, Mild distress HEENT: Atraumatic, PERRLA, EOMI Neck: Supple, JVD not distended Respiratory: Clear to auscultation bilaterally, Normal air movement Cardiovascular: Regular rate/rhythm, Normal S1 S2 Gastrointestinal: Normal bowel sounds, No tenderness Musculoskeletal: No tenderness Integumentary: No rashes Neurological: Normal speech, Normal tone, Normal affect Lymphatics: No axilla or inguinal lymphadenopathy Assessment & Plan - Problems (Diagnosis) (1) COVID Current Visit: No Status: Acute Plan: Patient is doing poorly. Restart solumedrol. Will give him the last dose of remdesivir. Start him on iodine nasal rinses to decrease the covid in he nasal cavity. Will start him on asorbic acid, vitamin d and zin. 05/10 crp is elevated. Will continue methylprednisone. Will consider baricitnib. discuss with Dr. Rucker (2) Hyperlipidemia Current Visit: No Status: Chronic Plan: will treat with atorvastatin for now. Qualifiers: Discharge Plan: Home Plan to discharge in: Greater than 2 days - Code Status/Comfort Care Code Status Assessed: No Physician Review: Patient Assessed, Agree with Above Assessment and Plan Critical Care: No Time Spent Managing Pts Care (In Minutes): 30
[2021-05-10] MEDS: BARICITINIB 2 MG TABLET PO SCH (13:34)
[2021-05-10] MEDS: ACETAMINOPHEN 500 MG TAB PO PRN ×2 (16:17→21:04)
[2021-05-10] MEDS ORDERED: FUROSEMIDE 40 MG/4 ML VIAL IV ONE (19:10)
[2021-05-10] MEDS: ATORVASTATIN 10 MG TAB PO SCH (20:53)
[2021-05-10] MEDS: clonazePAM 1 MG TAB PO PRN (21:05)
[2021-05-11 04:34] LABS: Absolute Lymphocytes (CBC) 0.5 K/uL (0.7-4.9); Basophils % 0.2 % (0-1.3); Lymphocytes % 6.5 % (15.3-44.8); MPV 8.5 fL (7.6-11.3)
[2021-05-11 04:45] LABS: ALT/SGPT 116 U/L (12-78); AST/SGOT 30 U/L (15-37); Albumin 2.6 g/dL (3.4-5.0); Alkaline Phosphatase 87 U/L (45-117); BUN Blood Urea Nitrogen 14 mg/dL (7-18); Bicarbonate 34 mmol/L (21-32); Bilirubin Total 0.7 mg/dL (0.2-1.0); Glucose Level 203 mg/dL (74-106); Potassium 4.3 mmol/L (3.5-5.1); Protein, Total 6.1 g/dL (6.4-8.2); Sodium Level 138 mmol/L (136-145)
[2021-05-11] MEDS: ASCORBIC ACID 500 MG TABLET PO SCH (08:24)
[2021-05-11] MEDS: METHYLPREDNISOLONE 40 MG INJ IV SCH ×2 (08:24→20:54)
[2021-05-11] MEDS: ZINC SULFATE 220 MG CAP PO SCH (08:24)
[2021-05-11] MEDS: APIXABAN 5 MG TABLET PO SCH ×2 (08:24→20:54)
[2021-05-11] MEDS: VITAMIN D 5,000 UNIT CAP PO SCH (08:24)
[2021-05-11] MEDS: BARICITINIB 2 MG TABLET PO SCH (09:00)
[2021-05-11] MEDS: FLUTICASONE 50MCG NASAL SPRAY NAS SCH (09:00)
[2021-05-11] MEDS: CHLORHEXIDINE 0.12% 473ML BOT MM SCH ×2 (09:00→20:54)
--- NOTE | 2021-05-11 11:22 | P.PN ---
Subjective Date of Service: 05/11/21 Primary Care Provider: Pilar Chief Complaint: covid 19 Subjective: No new changes Review of Systems 10-point ROS is otherwise unremarkable ENT: Nose Congestion Respiratory: Shortness of Breath Physical Examination - Vital Signs Temperature: 97.6 F Blood Pressure: 105/55 Pulse: 65 Respirations: 22 Pulse Ox (%): 93 - Physical Exam General: Alert, In no apparent distress HEENT: Atraumatic, PERRLA, EOMI Neck: Supple, JVD not distended Respiratory: Diminished, Crackles/rales Cardiovascular: Regular rate/rhythm, Normal S1 S2 Gastrointestinal: Normal bowel sounds, No tenderness Musculoskeletal: No tenderness Integumentary: No rashes Neurological: Normal speech, Normal tone, Normal affect Lymphatics: No axilla or inguinal lymphadenopathy Assessment & Plan - Problems (Diagnosis) (1) COVID Current Visit: No Status: Acute Plan: Patient is doing poorly. Restart solumedrol. Will give him the last dose of remdesivir. Start him on iodine nasal rinses to decrease the covid in he nasal cavity. Will start him on asorbic acid, vitamin d and zin. 05/10 Continue monoclonoal antibodies and steroids. Still requires high flow oxygen (2) Hyperlipidemia Current Visit: No Status: Chronic Plan: will treat with atorvastatin for now. Qualifiers: Discharge Plan: Home Plan to discharge in: Greater than 2 days - Code Status/Comfort Care Code Status Assessed: No Physician Review: Patient Assessed, Agree with Above Assessment and Plan Critical Care: No Time Spent Managing Pts Care (In Minutes): 20
[2021-05-11] MEDS: clonazePAM 1 MG TAB PO PRN (20:54)
[2021-05-11] MEDS: ATORVASTATIN 10 MG TAB PO SCH (20:54)
[2021-05-12 06:09] LABS: Absolute Lymphocytes (CBC) 0.5 K/uL (0.7-4.9); Basophils % 0.3 % (0-1.3); Hematocrit 37.2 % (39.6-49.0); Lymphocytes % 5.4 % (15.3-44.8); MPV 8.2 fL (7.6-11.3); RBC Red Blood Cell Count 4.14 M/uL (4.33-5.43)
[2021-05-12 06:25] LABS: ALT/SGPT 115 U/L (12-78); AST/SGOT 28 U/L (15-37); Albumin 2.6 g/dL (3.4-5.0); Alkaline Phosphatase 84 U/L (45-117); BUN Blood Urea Nitrogen 13 mg/dL (7-18); Bicarbonate 31 mmol/L (21-32); Bilirubin Total 0.7 mg/dL (0.2-1.0); Glucose Level 214 mg/dL (74-106); Protein, Total 6.2 g/dL (6.4-8.2); Sodium Level 140 mmol/L (136-145)
[2021-05-12] MEDS: FLUTICASONE 50MCG NASAL SPRAY NAS SCH (08:32)
[2021-05-12] MEDS: BARICITINIB 2 MG TABLET PO SCH (08:33)
[2021-05-12] MEDS: VITAMIN D 5,000 UNIT CAP PO SCH (08:33)
[2021-05-12] MEDS: METHYLPREDNISOLONE 40 MG INJ IV SCH (08:34)
[2021-05-12] MEDS: ASCORBIC ACID 500 MG TABLET PO SCH (08:34)
[2021-05-12] MEDS: APIXABAN 5 MG TABLET PO SCH ×2 (08:34→20:27)
[2021-05-12] MEDS: ZINC SULFATE 220 MG CAP PO SCH (08:34)
[2021-05-12] MEDS: CHLORHEXIDINE 0.12% 473ML BOT MM SCH ×2 (08:35→20:27)
[2021-05-12 10:10] LABS: White Blood Cell Scan OK (OK)
[2021-05-12 10:11] LABS: Blood Morphology Comment NOT SEEN (NOT SEEN); Platelet Estimate ADEQ; Platelets, Giant PRESENT
--- NOTE | 2021-05-12 12:58 | P.PN ---
Subjective Date of Service: 05/12/21 Primary Care Provider: Pilar Chief Complaint: covid 19 Subjective: Improving (improving on nasal oxygen) Review of Systems Respiratory: Shortness of Breath Physical Examination - Vital Signs Temperature: 98.0 F Blood Pressure: 119/59 Pulse: 70 Respirations: 20 Pulse Ox (%): 94 - Physical Exam General: Alert, In no apparent distress HEENT: Atraumatic, PERRLA, EOMI Neck: Supple, JVD not distended Respiratory: Clear to auscultation bilaterally, Normal air movement Cardiovascular: Regular rate/rhythm, Normal S1 S2 Gastrointestinal: Normal bowel sounds, No tenderness Musculoskeletal: No tenderness Integumentary: No rashes Neurological: Normal speech, Normal tone, Normal affect Lymphatics: No axilla or inguinal lymphadenopathy Assessment & Plan - Problems (Diagnosis) (1) COVID Current Visit: No Status: Acute Plan: Patient is doing poorly. Restart solumedrol. Will give him the last dose of remdesivir. Start him on iodine nasal rinses to decrease the covid in he nasal cavity. Will start him on asorbic acid, vitamin d and zin. 05/12 Continue monoclonoal antibodies and steroids. Still requires high flow oxygen. Has been able to tolerate 15lts. (2) Hyperlipidemia Current Visit: No Status: Chronic Plan: will treat with atorvastatin for now. Qualifiers: Discharge Plan: Home Plan to discharge in: 24 Hours - Code Status/Comfort Care Code Status Assessed: No Physician Review: Patient Assessed, Agree with Above Assessment and Plan Critical Care: No Time Spent Managing Pts Care (In Minutes): 25
[2021-05-12] MEDS ORDERED: FUROSEMIDE 20 MG/ 2ML VIAL IV ONE (19:06)
[2021-05-12] MEDS: ATORVASTATIN 10 MG TAB PO SCH (20:27)
[2021-05-13] MEDS: dexAMETHasone 4 MG/ML VIAL IV SCH ×3 (00:11→17:31)
[2021-05-13] MEDS: FLUTICASONE 50MCG NASAL SPRAY NAS SCH (08:41)
[2021-05-13] MEDS: VITAMIN D 5,000 UNIT CAP PO SCH (08:42)
[2021-05-13] MEDS: CHLORHEXIDINE 0.12% 473ML BOT MM SCH ×2 (08:42→19:54)
[2021-05-13] MEDS: ASCORBIC ACID 500 MG TABLET PO SCH (08:42)
[2021-05-13] MEDS: APIXABAN 5 MG TABLET PO SCH ×2 (08:42→19:55)
[2021-05-13] MEDS: ZINC SULFATE 220 MG CAP PO SCH (08:42)
[2021-05-13] MEDS: BARICITINIB 2 MG TABLET PO SCH (08:45)
--- NOTE | 2021-05-13 12:27 | P.PN ---
Subjective Date of Service: 05/13/21 Primary Care Provider: Pilar Chief Complaint: covid 19 Subjective: Improving Review of Systems Respiratory: Shortness of Breath Physical Examination - Vital Signs Temperature: 97.7 F Blood Pressure: 113/65 Pulse: 68 Respirations: 22 Pulse Ox (%): 92 - Physical Exam General: Alert, In no apparent distress HEENT: Atraumatic, PERRLA, EOMI Neck: Supple, JVD not distended Respiratory: Diminished, Crackles/rales Cardiovascular: Regular rate/rhythm, Normal S1 S2 Gastrointestinal: Normal bowel sounds, No tenderness Musculoskeletal: No tenderness Integumentary: No rashes Neurological: Normal speech, Normal tone, Normal affect Lymphatics: No axilla or inguinal lymphadenopathy Assessment & Plan - Problems (Diagnosis) (1) COVID Current Visit: No Status: Acute Plan: Patient is doing poorly. Restart solumedrol. Will give him the last dose of remdesivir. Start him on iodine nasal rinses to decrease the covid in he nasal cavity. Will start him on asorbic acid, vitamin d and zin. 05/12 Continue monoclonoal antibodies and steroids. Still requires high flow oxygen. Has been able to tolerate 15lts. (2) Hyperlipidemia Current Visit: No Status: Chronic Plan: will treat with atorvastatin for now. Qualifiers: Discharge Plan: Home Plan to discharge in: Greater than 2 days - Code Status/Comfort Care Code Status Assessed: No Physician Review: Patient Assessed, Agree with Above Assessment and Plan Critical Care: No Time Spent Managing Pts Care (In Minutes): 20
--- NOTE | 2021-05-13 12:55 | P.PN ---
Subjective Date of Service: 05/13/21 Primary Care Provider: Pilar Chief Complaint: covid 19 Subjective: Improving (Feeling better O2 requirements decreasing) Review of Systems Respiratory: Shortness of Breath Physical Examination - Vital Signs Temperature: 97.7 F Blood Pressure: 113/65 Pulse: 68 Respirations: 22 Pulse Ox (%): 92 - Physical Exam General: Alert, Oriented x3, Cooperative Assessment & Plan - Problems (Diagnosis) (1) COVID Current Visit: No Status: Acute Plan: Improving O2 requirement improving . Poss dc 1-2 days/ on max therapy Physician Review: Patient Assessed, Agree with Above Assessment and Plan
[2021-05-13] MEDS: ATORVASTATIN 10 MG TAB PO SCH (19:55)
[2021-05-14] MEDS: dexAMETHasone 4 MG/ML VIAL IV SCH ×3 (00:07→17:44)
[2021-05-14] MEDS: VITAMIN D 5,000 UNIT CAP PO SCH (08:55)
[2021-05-14] MEDS: ZINC SULFATE 220 MG CAP PO SCH (08:55)
[2021-05-14] MEDS: BARICITINIB 2 MG TABLET PO SCH (08:56)
[2021-05-14] MEDS: APIXABAN 5 MG TABLET PO SCH ×2 (08:56→19:49)
[2021-05-14] MEDS: ASCORBIC ACID 500 MG TABLET PO SCH (08:56)
[2021-05-14] MEDS: FLUTICASONE 50MCG NASAL SPRAY NAS SCH (08:57)
[2021-05-14] MEDS: CHLORHEXIDINE 0.12% 473ML BOT MM SCH ×2 (08:57→19:49)
--- NOTE | 2021-05-14 11:20 | P.PN ---
Subjective Date of Service: 05/14/21 Primary Care Provider: Pilar Chief Complaint: covid 19 Subjective: Improving Review of Systems 10-point ROS is otherwise unremarkable Respiratory: SOB with Excertion Physical Examination - Vital Signs Temperature: 98.7 F Blood Pressure: 99/61 Pulse: 64 Respirations: 20 Pulse Ox (%): 93 - Physical Exam General: Alert, In no apparent distress HEENT: Atraumatic, PERRLA, EOMI Neck: Supple, JVD not distended Respiratory: Normal air movement, Inspiratory wheezes Cardiovascular: Regular rate/rhythm, Normal S1 S2 Gastrointestinal: Normal bowel sounds, No tenderness Musculoskeletal: No tenderness Integumentary: No rashes Neurological: Normal speech, Normal tone, Normal affect Lymphatics: No axilla or inguinal lymphadenopathy - Studies Microbiology Data (last 24 hrs): 05/09/21 07:25 Blood - Blood Aerobic Blood Culture - Final No growth in 5 days. 05/09/21 07:25 Blood - Blood Anaerobic Blood Culture - Final No growth in 5 days. 05/09/21 07:28 Blood - Blood Aerobic Blood Culture - Final No growth in 5 days. 05/09/21 07:28 Blood - Blood Anaerobic Blood Culture - Final No growth in 5 days. Assessment & Plan - Problems (Diagnosis) (1) COVID Current Visit: No Status: Acute Plan: Patient is doing poorly. Restart solumedrol. Will give him the last dose of remdesivir. Start him on iodine nasal rinses to decrease the covid in he nasal cavity. Will start him on asorbic acid, vitamin d and zin. 05/14 Patient is comfortable Will continue to wean him off oxygen (2) Hyperlipidemia Current Visit: No Status: Chronic Plan: will treat with atorvastatin for now. Qualifiers: Discharge Plan: Home Plan to discharge in: Greater than 2 days - Code Status/Comfort Care Code Status Assessed: No Physician Review: Patient Assessed, Agree with Above Assessment and Plan Critical Care: No Time Spent Managing Pts Care (In Minutes): 20
[2021-05-14] MEDS: ATORVASTATIN 10 MG TAB PO SCH (19:49)
[2021-05-15] MEDS: dexAMETHasone 4 MG/ML VIAL IV SCH ×2 (01:25→09:17)
[2021-05-15] MEDS: FLUTICASONE 50MCG NASAL SPRAY NAS SCH (09:00)
[2021-05-15] MEDS: CHLORHEXIDINE 0.12% 473ML BOT MM SCH (09:00)
[2021-05-15] MEDS: APIXABAN 5 MG TABLET PO SCH (09:16)
[2021-05-15] MEDS: BARICITINIB 2 MG TABLET PO SCH (09:16)
[2021-05-15] MEDS: ASCORBIC ACID 500 MG TABLET PO SCH (09:16)
[2021-05-15] MEDS: VITAMIN D 5,000 UNIT CAP PO SCH (09:16)
[2021-05-15] MEDS: ZINC SULFATE 220 MG CAP PO SCH (09:17)
[2021-05-15 09:34] VITALS: BP 110/59; TEMP 97.6
[2021-05-15 09:39] VITALS: O2SAT 92
--- NOTE | 2021-05-15 12:29 | P.DS ---
Admission Date: 05/09/21 Discharge Date: 05/15/21 Primary Care Provider: Pilar Disposition: ROUTINE DISCHARGE Discharge Condition: GOOD Reason for Admission: covid 19 - Problems (1) COVID Current Visit: No Status: Acute (2) Hyperlipidemia Current Visit: No Status: Chronic Qualifiers: Brief History of Present Illness: Patient was discharged yesterday with home oxygen and steroids. He started having nasal congestion in the evening and worsening shortness of breath. The patient called an ambulance and was found to have an spo2 in the 80% He was started on high flow oxygen and brought back to the ER. The patient is complainting of nasal congestion as well. Hospital Course: Patient was admitted for worsening hypoxia after covid pneumonia. He as put on steroids and high flow oxygen. Kept in house. today he is down to 4 lts. Was able to walk with out desaturating on 4lts. Will discharge the patient home on steroids, oxygen and anticoagulation. He can follow up with me in the office in 1 week. Vital Signs/Physical Exam: Temp Pulse Resp BP Pulse Ox 97.6 F 72 20 110/59 L 92 05/15/21 08:00 05/15/21 08:00 05/15/21 08:00 05/15/21 08:00 05/15/21 08:00 General: Alert, In no apparent distress HEENT: Atraumatic, PERRLA, EOMI Neck: Supple, JVD not distended Respiratory: Clear to auscultation bilaterally, Normal air movement Cardiovascular: Regular rate/rhythm, Normal S1 S2 Gastrointestinal: Normal bowel sounds, No tenderness Musculoskeletal: No tenderness Integumentary: No rashes Neurological: Normal speech, Normal tone, Normal affect Lymphatics: No axilla or inguinal lymphadenopathy Laboratory Data at Discharge: WBC 10.00 K/uL (4.3-10.9) D 05/12/21 05:47 Hgb 13.1 g/dL (13.6-17.9) L 05/12/21 05:47 Hct 37.2 % (39.6-49.0) L 05/12/21 05:47 Plt Count 330 K/uL (152-406) D 05/12/21 05:47 PT 13.2 SECONDS (9.5-12.5) H 05/09/21 07:28 INR 1.15 05/09/21 07:28 APTT 26.0 SECONDS (24.3-36.9) 05/09/21 07:28 Sodium 140 mmol/L (136-145) 05/12/21 05:47 Potassium 4.0 mmol/L (3.5-5.1) 05/12/21 05:47 BUN 13 mg/dL (7-18) 05/12/21 05:47 Creatinine 0.72 mg/dL (0.55-1.3) 05/12/21 05:47 Glucose 214 mg/dL (74-106) H 05/12/21 05:47 Total Bilirubin 0.7 mg/dL (0.2-1.0) 05/12/21 05:47 AST 28 U/L (15-37) 05/12/21 05:47 ALT 115 U/L (12-78) H 05/12/21 05:47 Alkaline Phosphatase 84 U/L (45-117) 05/12/21 05:47 Troponin I < 0.02 ng/mL (0.0-0.045) 05/09/21 16:55 Amylase 48 U/L (25-115) 05/09/21 07:28 Lipase 163 U/L (73-393) 05/09/21 07:28 Home Medications: Apixaban [Eliquis] 5 mg PO BID tablet 05/15/21 Ascorbic Acid [Vitamin C*] 500 mg PO DAILY tablet 05/15/21 Dexamethasone [Decadron] 6 mg PO DAILY 7 Days #7 tablet 05/15/21 New Medications: Dexamethasone [Decadron] 6 mg PO DAILY 7 Days #7 tablet Followup: Grayson Quezada MD [ACTIVE - CAN ADMIT] - Time spent managing pt's care (in minutes): 30
== END 2021-05-15 14:20 | disposition home or self-care (01) | DRG 177 ==
LOC: ER 07:14 → ERHOLD 09:17 → 4TH 20:40
PROVIDERS: ADMIT Internal Medicine; ATTEND Internal Medicine
PROC: XW033E5 Introduction of Remdesivir Anti-infective into Peripheral Vein, Percutaneous Approach, New Technology Group 5 (ICD-10-PCS; principal; 2021-05-09)
DX: U07.1 COVID-19 (principal); J12.82 Pneumonia due to coronavirus disease 2019; J96.21 Acute and chronic respiratory failure with hypoxia; E78.5 Hyperlipidemia, unspecified
CPT/HCPCS: 36415; 71045; 80048; 80053; 80076; 82150; 82550; 82553; 82947; 83605; 83690; 83880; 84145; 84484; 85025; 85379; 85610; 85730; 86140; 87040; 93005; 94760; 96374; 96375; 99285; J1100; J1720; J1940; J2405; J2920; J7050